=== PATIENT | male | born 1955 | race Caucasian/White ===

== ENCOUNTER 2018-03-03 06:08 | Inpatient (IN) | payer OTHER, SELFPAY ==
[2018-02-17 10:58] VITALS: BMI 29.3
[2018-03-03] VITALS (18 sets, daily range): BP systolic 117–139; BP diastolic 50–95; PULSE 71–88; RESP 10–21; TEMP 36.2–37.6; O2SAT 95–99; BMI 29.3
--- NOTE | 2018-03-03 | DI.RAD.S_ITS ---
PROCEDURE: XR LUMBAR SPINE 2-3V INDICATIONS: L2-3-4-5 XLIF, L5-S1 TLIF TECHNIQUE: 2 views of the lumbar spine were acquired. COMPARISON: None. FINDINGS: Bones: A normal alignment is visualized after bilateral posterior transverse pedicle screw placement and vertical fixation moe placement from L2-S1. Soft tissues: Overlying bowel gas pattern is normal. No suspicious soft tissue calcifications. IMPRESSION: Normal alignment established after posterior fusion procedure with interbody disc prosthesis material from L2-3 through L5-S1. Dictated by: Ashok Wise M.D. on 03/03/2018 at 12:52 Approved by: Ashok Wise M.D. on 03/03/2018 at 12:53
[2018-03-03] MEDS: LACTATED RINGERS 1,000 ML 42 ML IV ×3 (07:09→12:42)
--- NOTE | 2018-03-03 07:34 | PM.PREOP ---
Pre-operative Note Interval Note Pre-op Check: Yes History & Physical Reviewed by Physician and Yes Exam Performed Changes: No
--- NOTE | 2018-03-03 07:40 | P.OP_ITS ---
Operative Date/Time/Diagnoses Date of procedure: 03/03/18 Time of procedure: 12:41 Pre-op diagnosis: Lumbar stenosis with radiculopathy Lumbar scoliosis Post-op diagnosis: same Procedure & Clinicians Procedure: L2-3, L2-3, L3-4 anterior fusion with cages L2-3, L3-4, L4-5 posterior fusion L5-S1 TLIF (post/post innerbody fusion) with cage L2-S1 screws ICBG L5S1 laminectomy microscope placement of epidural catheter Same procedure as scheduled: Yes Indications: [age] year old male with intractable pain from stenosis. They had failed conservative management and requested operative intervention. Risks and benefits of surgery were discussed and appropriate consents were obtained. Surgeon: Sheng Krause Autocad Operator: Iraida Medina Anesthesia Type: General Operative Notes Findings: none Closure Type: primary Specimen(s): none sent Implants & Drains: NuVasive MAS Reline screws and XLIF cages Globus Rise cage Applied: catheter Estimated Blood Loss (mL): 50 Procedure in detail: Patient was brought to the operating room and intubated on the table. Time-out was performed. They were then rolled over to the lateral decubitus position with the [id number]. The table was bent and they were taped down in the correct position. X-rays were taken to confirm a true AP and lateral. Preoperative antibiotics were given. The left flank was prepped and draped in standard sterile fashion. Using fluoroscopy, a 3 cm incision was made above the iliac crest. We bluntly dissected down with Metzenbaum scissors and split the 3 abdominal muscle layers. We dissected out the retroperitoneal space and using finger guidance, brought our 1st dilator down to the psoas muscle. Using neuromonitoring and fluoroscopy, we placed it through the psoas onto the L4-5 disc space in an anterior position and gradually pulled the dilator posteriorly along the disc space. We placed our guidewire and measured our depth for the retractor. We then dilated with the next 2 dilators and then placed our retractor over the dilators. Position was confirmed with fluoroscopy and the retractor was locked down to the bar. We opened up the retractor and checked with neuro monitoring. We then placed the piotr and again checked with neuro monitoring. The retractor was opened further and the ALL retractor was placed. An annulotomy was performed. We then performed a complete diskectomy with ring curette, pituitary, box osteotome. A Kevin was advanced across the disc space under fluoroscopy to release the lateral annulus on the opposite side. We then used sequentially larger trials and confirmed under fluoroscopy. An XLIF cage was packed with Osteocell bone graft and impacted into the L4-5 disc space with fluoroscopy for the anterior fusion at this level. The wound was irrigated. The retractor was closed down. The piotr was removed. We carefully removed the retractor with direct visualization to make sure there was no neurovascular or abdominal injury. We then repeated the procedure with dilation, placement of the retractor, diskectomy with the lateral release, and placement of our cage packed with bone graft for the anterior fusion at L3-4. We then carefully removed the retractor with direct visualization. We then repeated the procedure again with dilation, placement of the retractor, diskectomy with lateral release, placement of our cage with bone graft for the anterior fusion at L2-3. We carefully removed the retractor with direct visualization. Final x-rays were taken. The muscle fascia was closed, superficial tissue was closed. The skin was closed. Sterile dressing was placed. The patient was then rolled over on the well-padded prone position on the Satinder table. Using fluoroscopy for localization, a 12 cm incision was made to the right of the midline. We used Bovie to split the fascia. We then percutaneously placed Jamshidi needles down the right pedicles of L5 and S1 with neural monitoring and fluoroscopy. These were switched out for guidewires. We then tapped and placed our realign screw shanks. We then opened up the retractor blades and cleared out the posterolateral gutter and expose the transverse process of L5 and sacral ala. We also cleared medially. The gutter was decorticated We then brought in the microscope. A laminectomy was performed at L5-S1 with a bur and Kerrison rongeurs. We carefully depressed the dura to reach to the opposite side and decompress the entire central canal. We cleared out the neural foramen. This required a near complete facetectomy to open up the foramen. Once we decompressed the canal, we then began working on our prep for our TLIF. We completed the facetectomy on the right at L5-S1. We carefully retracted the dura and prepped the disc with bipolar. We made an annulotomy in the disc with a scalpel. We then prepped the disc space with a combination of paddles, Cachorro, curettes, and pituitaries. We opened up the paddle and locked the screws and retractor and an open position. We packed the anterior disc space with Osteocell bone graft. We then carefully placed a globus Rise cage and expanded under fluoroscopy. More bone graft was placed in the disc for the posterior innerbody fusion of the TLIF. . We released the traction on the screws. The wound was copiously irrigated. An epidural catheter was primed with 4mL of 0.5% bupivacaine, 100 mcg fentanyl, 4 mg Duramorph, 1 mg Stadol. The dura was depressed under the cephalad lamina with a ball probe and the epidural catheter was gently advanced 6 cm cephalad. The retractor was then removed. We then again used neural monitoring and fluoroscopy to place Jamshidi needles down the right pedicles of L2, L3, and L4. These were changed to guidewires. Open the muscle with a Estela splitting approach to expose the facet and the transverse processes at these levels and they were decorticated with the bur. We then tapped and placed our screws at L2, L3, L4 as well as the screw heads at L5 and S1. We measured and placed a moe. This was locked down. The wound was irrigated. A small stab incision was made over the PSIS and a Jamshidi needle was placed into the iliac crest and several mL of bone marrow was aspirated. This was mixed with our locally harvested bone graft as well as the remaining Osteocell and 60cc bone chips and placed in the posterolateral gutter for fusion at L2 through 5 as well as the posterolateral L5-S1 fusion for the TLIF. The fascia was then closed. The epidural was then injected without resistance. The catheter was pulled and we closed more over the fascia. We then used fluoroscopy and made another 12 cm incision on the left side. Bovie used to split the fascia. We then percutaneously placed Jamshidi needles down the left pedicles of L2 through S1. These were switched the guidewires, tapped, and the screws were placed. A moe was placed and locked down on the side. The wound was irrigated. The fascia was closed. Vancomycin powder was placed in the wounds. The superficial and skin were closed. Sterile dressing was placed. The patient was then rolled over, extubated, brought to the recovery room with no complications. Complications: none Condition: stable Disposition: PACU Plan for aftercare: Inpatient. Up with physical therapy
[2018-03-03] MEDS: MIDAZOLAM 2 MG/2 ML VIAL IV (07:50)
[2018-03-03] MEDS: CEFAZOLIN 2 GM/100 ML FROZ.PIGGY IV ×3 (08:05→23:48)
[2018-03-03] MEDS: SODIUM CHLORIDE 0.9% 1,000 ML, GENTAMICIN 80 MG IRR (08:36)
--- NOTE | 2018-03-03 08:53 | SUR.OPER ---
Position 1: Right lateral on padded OR table. Head on pillow, gel axillary roll, pillow to support left arm. Legs flexed, pillows between legs, gel pad under down leg and ankle. Multiple passes of 3 inch cloth tape across shoulder, hip, upper and lower legs to secure patient on OR table.
--- NOTE | 2018-03-03 08:53 | SUR.OPER ---
Position 2: Prone on spine table, head in foam head support, padded chest and pelvic supports, gel pad at knees, lower legs supported by pillows; nipples, genitalia and toes free of pressure, arms secured on foam padded arm boards at <90 degrees abduction. Tape over blanket at thigh secured to table.
[2018-03-03] MEDS: THROMBIN (BOVINE) 5,000 UNIT VIAL 5000 UNIT TOP (09:04)
[2018-03-03] MEDS: BUPIVACAINE 0.5% (PF) 4 ML, MORPHINE-PF 4 MG, BUTORPHANOL 1 MG, fentaNYL 100 MCG INJ (09:07)
[2018-03-03] MEDS: VANCOMYCIN 1,000 MG VIAL 1000 MG TOP (09:09)
[2018-03-03] MEDS: HYDROMORPHONE 2 MG INJ 0.5 MG IV ×4 (13:10→13:25)
[2018-03-03] MEDS: LORazepam 2 MG/ML SYRINGE 0.25 MG IV ×2 (13:22→13:31)
[2018-03-03] MEDS: fentaNYL 100 MCG/2 ML INJ 25 MCG IV ×4 (13:30→14:00)
[2018-03-03] MEDS: hydrOXYzine 50 MG/ML INJ 25 MG IM (13:34)
--- NOTE | 2018-03-03 14:12 | SUR.PHASEI ---
pt writhing in pain medicated with dilaudid, lorazepam, fentanyl, vistaril. pt finally now looks comfortable. report attempted, rn not available will call back, pt spent time on r side and back changed several times through out pacu stay, dressing to l side with drainage that is encircled.
--- NOTE | 2018-03-03 14:46 | SUR.PHASEI ---
report called to priscilla pt transported up to room 201 and left in stable condition. pt tolerated 1 cup of ice chips and applesuace.
--- NOTE | 2018-03-03 14:56 | SUR.PHASEI ---
glucose done at 1315 was 119.
[2018-03-03] MEDS: METOCLOPRAMIDE 10 MG/2 ML INJ IV (15:12)
--- NOTE | 2018-03-03 16:41 | PT.IPTN ---
Current Diagnoses Other forms of scoliosis, lumbar region (03/03/18) Spinal stenosis, cervical region (03/03/18) Spinal stenosis, lumbar region with neurogenic claudication (03/03/18) Other intervertebral disc degeneration, lumbar region (03/03/18) Surgery Performed Operation Date: 03/03/18 07:45 Actual Procedures p L2-S1 Ant/Post Instru. Fusion w/Bone Graft(XLIF & TLIF)w/Laminectomy L5-S1 - Sheng Krause MD Physical Therapy Treatment Note M3 PT-IP Subjective Start: 03/03/18 16:37 Freq: NEEDED Status: Active Protocol: Document 03/03/18 16:37 EA (Rec: 03/03/18 16:41 EA [id number]) Subjective Physical Therapy Visit Type Type Administrative Note Notes Nurse in charged reports at 1630 reports patient is not ready to received pain medication at this time due to other medical issue. Patient reports willing to mobilized however pain rated 9/10; pt reports very painful to change position. Patient agreeable to participate with PT eval tomorrow am.
[2018-03-03] MEDS: LACTATED RINGERS 1,000 ML 125 ML IV ×2 (16:53→23:45)
[2018-03-03] MEDS: ACETAMINOPHEN 325 MG TABLET 650 MG PO (16:56)
[2018-03-03] MEDS: OXYCODONE IR 5 MG TABLET PO ×2 (19:19→22:48)
[2018-03-03] MEDS: PRAVASTATIN 20 MG TABLET 10 MG PO (21:00)
[2018-03-03] MEDS: GABAPENTIN 300 MG CAPSULE 600 MG PO (21:00)
[2018-03-03] MEDS: clonazePAM 0.5 MG TABLET PO (21:01)
[2018-03-03] MEDS: DOCUSATE 100 MG CAPSULE PO (21:01)
[2018-03-03] MEDS: TAMSULOSIN 0.4 MG CAPSULE PO (21:01)
--- NOTE | 2018-03-03 23:01 | PC.NURSE ---
1530: Pt drowsy/oriented. Dozing off during conversation. Respiratory rate 8-10. Pt reports pain, though with respirations/pauses, not given pain meds yet. Dressing to lower back c/d/i, dressing to left flank with drainage present/marked. LS w/expiratory wheeze/rhonchi. Encouraged cough/deep breathing. Spouse at bedside. Pt/spouse using call light appropriately for needs. 1730: Pt continues to have respirations with sleep 8-10, very drowsy. 1900: Pt respirations 12-14 w/rest and now more awake/alert. Reports pain 8/10. Medicated w/one tab oxycodone and pain decreased to 4/10. 2245: Pt medicated w/one tab oxycodone. Spouse staying the night.
[2018-03-04] VITALS (8 sets, daily range): BP systolic 122–148; BP diastolic 64–80; PULSE 74–84; RESP 16–22; TEMP 36.7–37.9; O2SAT 93–96
[2018-03-04] MEDS: OXYCODONE IR 5 MG TABLET PO (02:12)
[2018-03-04] MEDS: HYDROMORPHONE 1 MG INJ 0.5 MG IV ×3 (03:49→21:30)
[2018-03-04] MEDS: hydrOXYzine pamoate 25 MG CAPSULE PO (04:20)
[2018-03-04] MEDS: OXYCODONE IR 5 MG TABLET 10 MG PO (05:05)
[2018-03-04 07:36] LABS: Hematocrit 37.5 % (41-53); Hemoglobin 14.1 g/dL (13.5-17.5)
--- NOTE | 2018-03-04 08:08 | PM.PNPO.1 ---
Subjective Date Patient Seen: 03/04/18 Time Patient Seen: 08:08 Interval history: Pain not as bad overnight but severe this morning. Exam Vital Signs (past 8 hours): - 03/04/18 03:30 Temperature 98.8 F Pulse Rate 74 Respiratory Rate 22 Blood Pressure 132/72 Pulse Oximetry 95 Oxygen Delivery Method Nasal Cannula Oxygen Flow Rate 3 Const Orientation: alert and oriented x3 Back/Spine/Pelvis Other: moderate drainage on both dressings. 5/5 motor BLE Objective Labs Result Diagrams: 03/04/18 07:07 Labs: Laboratory Results - last 24 hr 03/04/18 07:07 Hgb 14.1 Hct 37.5 L Assessment & Plan Post-op Postoperative Procedures Operation Date: 03/03/18 07:45 Actual Procedures Side Surgeon p L2-S1 Ant/Post Instru. Fusion w/Bone Graft(XLIF & TLIF)w/Laminectomy L5-S1 Sheng Krause MD Stable after large front/back lumbar fusion. Pain control discussed with nursing and we will adjust his meds. Mobilize with PT. Quality VTE Deep Vein Thrombosis/Pulmonary Embolism Present on Admission: No
[2018-03-04] MEDS: AMLODIPINE 5 MG TABLET 10 MG PO (08:28)
[2018-03-04] MEDS: DOCUSATE 100 MG CAPSULE PO ×2 (08:29→20:29)
[2018-03-04] MEDS: hydroCHLOROthiazide 25 MG TABLET PO (08:29)
[2018-03-04] MEDS: LISINOPRIL 20 MG TABLET PO (08:30)
[2018-03-04] MEDS: MELOXICAM 7.5 MG TABLET 15 MG PO (08:31)
[2018-03-04] MEDS: diazePAM 5 MG TABLET PO (08:32)
[2018-03-04] MEDS: OXYCODONE IR 5 MG TABLET 15 MG PO ×4 (08:34→18:56)
[2018-03-04] MEDS: GABAPENTIN 600 MG TABLET PO ×2 (08:39→20:30)
--- NOTE | 2018-03-04 11:25 | OT.IP.EVAL ---
Current Diagnoses Other forms of scoliosis, lumbar region (03/03/18) Spinal stenosis, cervical region (03/03/18) Spinal stenosis, lumbar region with neurogenic claudication (03/03/18) Other intervertebral disc degeneration, lumbar region (03/03/18) Surgery Performed Operation Date: 03/03/18 07:45 Actual Procedures p L2-S1 Ant/Post Instru. Fusion w/Bone Graft(XLIF & TLIF)w/Laminectomy L5-S1 - Sheng Krause MD Past Medical History (Last Updated 02/17/18 @ 11:41 by Heidi Quevedo RN) Anxiety (Acute) Arthritis (Acute) Bronchitis (Acute) Cataracts, both eyes (Acute) Dislocation of right shoulder joint (Acute) Diverticulosis (Acute) Easy bruisability (Acute) Edema (Acute) Enlarged prostate (Acute) Fingers fractured (Acute) GERD (gastroesophageal reflux disease) (Acute) Ganglion cyst (Acute) HTN (hypertension) (Acute) Hemorrhoids (Acute) Hyperactive (Acute) Hyperlipidemia (Acute) Migraines (Acute) Numbness (Acute) Numbness and tingling of both legs (Acute) Pre-diabetes (Acute) RLS (restless legs syndrome) (Acute) Ulcer (Acute) Surgical History (Last Updated 02/17/18 @ 11:27 by Heidi Quevedo RN) H/O vasectomy (Acute) History of arthroscopy of both knees (Acute) History of bilateral carpal tunnel release (Acute) History of colonoscopy (Acute) History of surgery on arm (Acute) Hx of tonsillectomy (Acute) Occupational Therapy Inpatient Evaluation/Re-Eval M1 PT/OT-IP Prior Functional Status Start: 03/03/18 16:37 Freq: NEEDED Status: Active Protocol: Document 03/04/18 15:29 [facility] (Rec: 03/04/18 15:39 [facility] [id number]) Medical Review Prior Functional Status Medical History Reviewed Yes Mobility and Gait indep no device Activities of Daily Living and IADL's indep Social History Household Members spouse Living Arrangements House Number of Floors (Floors) Two Floors Number of Stairs To Enter/Railing? 4; first stair with no railing , next 3 with railing Home Environment Standard Height Toilet Employment Status Retired M2 OT-IP Current Condition Start: 03/04/18 17:18 Freq: Status: Active Protocol: Document 03/04/18 11:25 [facility] (Rec: 03/04/18 17:34 [facility]J [id number]) Occupational Therapy Current Condition Current Condition Evaluation Date 03/04/18 Treatment Diagnosis decreased self care, functional mobility s/p L2-S1 fusion Diagnosis Onset Date 03/03/18 Post Operative Precautions Lumbar Precautions Log Roll No Twisting Limit Bending Lifting Restriction of 10 lbs Gait Belt above Incisional Area M3 OT- IP Subjective and Pain Start: 03/04/18 17:18 Freq: Status: Active Protocol: Document 03/04/18 11:25 [facility] (Rec: 03/04/18 17:34 PJ [id number]) OT- Subjective Occupational Therapy Visit Type Type Initial Evaluation Visit Start Time 10:41 Visit Stop Time 11:25 Total Visit Minutes 44 Notes Pt's here for education this session. Occupational Therapy Visit Comments Patient Comments Last night was the worst night of my life. Patient/Caregiver Goals to have less pain and go home OT Pain Assessment Pain When Pain Assessed After Treatment Pain Present Pain Present Pain Reported Location Lower Back Intensity 9 Scale Used Numeric (1 - 10) Description Aching Acute M4 OT- IP ADL's Start: 03/04/18 17:18 Freq: Status: Active Protocol: Document 03/04/18 11:25 [facility] (Rec: 03/04/18 17:34 PJ NRTM) OT [id number]-[id number]-[id number] General Evaluation Self-Feeding Ability Independent OT ADL-Grooming General Evaluation Grooming Ability Standby Assistance Areas Needing Assistance Face Washing Comments OT Grooming Comments seated in chair; pt declines other grooming tasks this session; focused on getting back to bed OT ADL-Oral Care Comments Oral Care Comments pt declined this session OT ADL-Dressing General Eval Upper Body Dressing Ability Minimal Assistance Lower Body Dressing Ability Total Assistance Assistive Devices Dressing Assistive Devices Long Handled Shoe Horn Bleacher Pulp Comments OT Dressing Comments can assist PRN at home; will begin education re: adapted ADL techniques tomorrow OT ADL-Toileting Comments OT Toileting Comments did not occur this session OT ADL-Bathing Comments OT Bathing Comments to be assessed as activity level improves M5 OT- IP IADL's Start: 03/04/18 17:18 Freq: Status: Active Protocol: Document 03/04/18 11:25 [facility] (Rec: 03/04/18 17:34 PJ [id number]) OT-Instrumental Activities of Daily Living Deficits IADL Deficits Identified Deficits Home Safety Awareness Awareness of Need for Assistance at Home Good Awareness Ability to Problem Solve Emergency Able to Problem Solve Situations Medication Management Medication Management Caregiver Provides Supervision Meal Preparation Meal Preparation Caregiver Provides Assist Meal Preparation Comments to assist until pt able Electron Beam Photo Mask Technician Electron Beam Photo Mask Technician Caregiver Provides Assist Driving Driving Comments to assist until pt able M6 OT- IP Functional Cognition Start: 03/04/18 17:18 Freq: Status: Active Protocol: Document 03/04/18 11:25 [facility] (Rec: 03/04/18 17:34 PJ [id number]) Cognitive Factors Limiting Selfcare Function Cognitive Ability Level of Alertness Alert Patient Orientation Name Place Situation Attention Span Ability Unable to Focus Ability to Follow Commands Able to Follow One Step Commands with Repetition Safety Awareness Decreased Recall of Precautions Decreased Ability to Apply Precautions Problem Solving Ability Unable to Identify Errors Needs Assist to Identify Solutions Executive Function Ability Unable to Filter Distractions Unable to Remember Details Cognitive Comments Cognitive Assessment Comments Pt very distracted by pain level with mod verbal cues to redirect attention to task. OT- Vision and Hearing OT- Hearing Assessment OT- Hearing Assessment WFL OT- Vision Assessment Visual Acuity WFL Vision Assessment Comments Pt denies any recent vision changes M7 OT- IP Mobility and Balance Start: 03/04/18 17:18 Freq: Status: Active Protocol: Document 03/04/18 11:25 [facility] (Rec: 03/04/18 17:34 [facility] [id number]) OT- Bed Mobility Assessment Rolling Type of Rolling Log Rolling Roll to Left Level of Assistance Contact Guard Assistance 1 Person Assistance Sit to Supine Sit to Supine Assist Moderate Assistance 1 Person Assistance Scooting Scooting to Edge of Bed Standby Assistance OT-Transfer Assessment Sit to and From Stand Sit to and from Stand Minimal Assistance 2 Person Assistance Transfers Transfer Ability Minimal Assistance 1 Person Assistance Technique Transfer Destination Bed Transfer Technique Stand Step Pivot Devices Transfer Assistive Devices Gait Belt Front Wheeled Walker Comments Mobility Comments Max cues for log roll technique with poor motor planning noted. Pt restless in bed and wanting to change positions every 4-5 min until distracted by conversation. OT- Gait Assessment Comments Gait Ability Comments see P.T. notes OT- Balance Assessment Sitting Balance and Reactions Static Sitting Balance Ability Good Dynamic Sitting Balance Ability Good Standing Balance and Reactions Static Standing Balance Ability Fair Dynamic Standing Balance Ability Fair M8 OT- IP Objective Assessments Start: 03/04/18 17:18 Freq: Status: Active Protocol: Document 03/04/18 11:25 [facility] (Rec: 03/04/18 17:34 PJM [id number]) OT Gross Range of Motion Upper Extremity Range of Motion Assessment Within Functional Limits OT Strength Upper Extremity Strength Assessment Within Functional Limits OT- Coordination Assessment Comments Coordination Comments BUE WFL OT-Muscle Tone Assessment Muscle Tone WNL Yes OT Sensation Assessment Comments Summary Comments Pt denies deficits in BUE's M9 OT- IP Assessment and Plan Start: 03/04/18 17:18 Freq: Status: Active Protocol: Document 03/04/18 11:25 [facility] (Rec: 03/04/18 17:34 PJM [id number]) OT Summary Assessment and Plan Potential Rehabilitation Potential Good Analytic Complexity at Evaluation Low Summary OT Impairments Pain Balance Functional Mobility Grooming Dressing Toileting Bathing Toilet Transfers Shower Transfers Assessment Summary Low complexity OT assessment completed with emphasis in self care skills within lumbar spine precautions. Began education with pt/ re: precautions, body mechanics, posture, practiced functional mobility. Pt very distractible, restless,very focused on high pain level but easily distracted with conversation and joking at times. able to cue pt appropriately as he does not recall/apply spine precautions with frequent twisting noted during bed mobility unless cued. Pt has performance deficits in activity tolerance , all functional mobility/ transfers, standing grooming, lower body dressing, bathing and toileting. Supportive can provide 24 hr assist and anticipate pt will be able to d/c home if he continues to progress here. Goals Grooming Goal Standby Assistance Dressing Goal Standby Assistance Long Handled Shoe Horn Bleacher Pulp Sock Aid Toileting Goal Standby Assistance Bathing Goal Standby Assistance Toilet Transfer Goal Standby Assistance Shower Transfer Goal Contact Guard Assistance Patient/Caregiver Education Goal Demonstrate Post-Op Precautions Demonstrate Energy Conservation and Pacing Caregiver Independent Assisting Patient OT-Other Goals Grooming to be done standing at sink wtih good body mechanics and no loss of balance Days to Meet Goals 3 Frequency of Treatment Frequency Of Treatment Once a Day Treatment Plan OT Treatment Plan ADL Training Functional Mobility Patient/Family Education Discharge Planning Discharge Recommendations OT Discharge Recommendations Home with / Assist Home Equipment Needs to obtain long bath sponge; pt would like W
[2018-03-04] MEDS: GABAPENTIN 300 MG CAPSULE PO (12:44)
--- NOTE | 2018-03-04 15:39 | PT.IIE ---
Current Diagnoses Other forms of scoliosis, lumbar region (03/03/18) Spinal stenosis, cervical region (03/03/18) Spinal stenosis, lumbar region with neurogenic claudication (03/03/18) Other intervertebral disc degeneration, lumbar region (03/03/18) Surgery Performed Operation Date: 03/03/18 07:45 Actual Procedures p L2-S1 Ant/Post Instru. Fusion w/Bone Graft(XLIF & TLIF)w/Laminectomy L5-S1 - Sheng Krause MD Surgical History (Last Updated 02/17/18 @ 11:27 by Heidi Quevedo, RN) H/O vasectomy (Acute) History of arthroscopy of both knees (Acute) History of bilateral carpal tunnel release (Acute) History of colonoscopy (Acute) History of surgery on arm (Acute) Hx of tonsillectomy (Acute) Medical History (Last Updated 02/17/18 @ 11:41 by Heidi Quevedo RN) Anxiety (Acute) Arthritis (Acute) Bronchitis (Acute) Cataracts, both eyes (Acute) Dislocation of right shoulder joint (Acute) Diverticulosis (Acute) Easy bruisability (Acute) Edema (Acute) Enlarged prostate (Acute) Fingers fractured (Acute) GERD (gastroesophageal reflux disease) (Acute) Ganglion cyst (Acute) HTN (hypertension) (Acute) Hemorrhoids (Acute) Hyperactive (Acute) Hyperlipidemia (Acute) Migraines (Acute) Numbness (Acute) Numbness and tingling of both legs (Acute) Pre-diabetes (Acute) RLS (restless legs syndrome) (Acute) Ulcer (Acute) Physical Therapy Inpatient Evaluation/Re-Eval M1 PT/OT-IP Prior Functional Status Start: 03/03/18 16:37 Freq: NEEDED Status: Active Protocol: Document 03/04/18 15:29 [facility] (Rec: 03/04/18 15:39 [facility] [id number]) Medical Review Prior Functional Status Medical History Reviewed Yes Mobility and Gait indep no device Activities of Daily Living and IADL's indep Social History Household Members spouse Living Arrangements House Number of Floors (Floors) Two Floors Number of Stairs To Enter/Railing? 4; first stair with no railing , next 3 with railing Home Environment Standard Height Toilet Employment Status Retired M2 PT-IP Current Condition Start: 03/03/18 16:37 Freq: NEEDED Status: Active Protocol: Document 03/04/18 15:29 [facility] (Rec: 03/04/18 15:39 [facility] [id number]) Physical Therapy Current Condition Current Condition Evaluation Date 03/04/18 Precautions Lumbar Precautions Log Roll No Twisting Limit Bending Lifting Restriction of 10 lbs Gait Belt above Incisional Area M3 PT-IP Subjective Start: 03/03/18 16:37 Freq: NEEDED Status: Active Protocol: Document 03/04/18 15:29 [facility] (Rec: 03/04/18 15:39 [facility] [id number]) Subjective Physical Therapy Visit Type Type Initial Evaluation Visit Start Time 09:14 Visit Stop Time 01:45 Total Visit Minutes 31 Number of SHAKER OPERATOR Visits 0 Physical Therapy Visit Comments Patient Comments Patient reports pain 8/10 now after medication, better than prior 1210 Patient Goals decrease pain and return home Therapy Pain Assessment Pain When Pain Assessed At Rest Pain Present Pain Present Pain Reported Location Lower Back Intensity 8 M4 PT-IP Mobility and Gait Start: 03/03/18 16:37 Freq: NEEDED Status: Active Protocol: Document 03/04/18 15:29 [facility] (Rec: 03/04/18 15:39 [facility] [id number]) PT-Bed Mobility Assessment Rolling Type of Rolling Log Rolling Roll to Right Supine to Sit Supine to Sit Moderate Assistance Scooting Scooting to Edge of Bed Minimal Assistance PT-Transfer Assessment Sit to and From Stand Sit to and from Stand Moderate Assistance Use of Upper Extremities Equipment Transfer Assistive Device Front Wheeled Walker Transfers Transfer Destination Chair Transfer Technique Stand Step Pivot Transfer Ability Level of Assist Moderate Assistance Comments Mobility Comments Verbal and manual cues for hand placement, not holding breath, safety Gait Assessment Gait Gait Assistance Required: Minimum Assistance Distance (Feet) 2 Assistive Devices Assistive Device Front Wheeled Walker Gait Deviations General Gait Pattern Antalgic Factors Limiting Gait Function Factors Limiting Gait Function Pain M5 PT-IP Objective Assessments Start: 03/03/18 16:37 Freq: NEEDED Status: Active Protocol: Document 03/04/18 15:29 [facility] (Rec: 03/04/18 15:39 [facility] [id number]) Gross Range of Motion Upper Extremity ROM Assessment Within Functional Limits Lower Extremity ROM Assessment Within Functional Limits Strength Comments Strength Comments No MMT due to recent surgery. Patient able to perform loida ankle pumps, heelslides, and LAQ indep Muscle Tone Muscle Tone WNL Yes M6 PT-IP Treatment Start: 03/03/18 16:37 Freq: NEEDED Status: Active Protocol: Document 03/04/18 15:29 [facility] (Rec: 03/04/18 15:39 [facility] [id number]) Physical Therapy Treatment Exercises Exercises Ankle Pumps Gluteal Sets Quad Sets Heel Slides Education Education Provided Precautions Safety Other Treatments Other Treatment Performed log roll education, rationale M7 PT-IP Assessment and Plan Start: 03/03/18 16:37 Freq: NEEDED Status: Active Protocol: Document 03/04/18 15:29 [facility] (Rec: 03/04/18 15:39 [facility] [id number]) PT Summary Assessment and Plan Potential Rehabilitation Potential Good Status of Condition at Evaluation Evolving Summary Impairments Pain Bed Mobility Transfers Gait Activity Tolerance Assessment Summary Patient presents 1 day post-op lumbar laminectomy and fusion with difficulty with pain control. Patient needed much encouragement to participate in PT but did well with instruction. Limiting factor is pain level. Goals Bed Mobility Goal Independent Transfer Goal Standby Assistance Gait Goal Standby Assistance Gait Distance 75 Other Goals Gait on stairs with SBA Days to Meet Goals 3 Frequency of Treatment Frequency Of Treatment Twice a Day Treatment Plan Physical Therapy Treatment Plan Bed Mobility Training Transfer Training Gait Training Therapeutic Exercise Post Op Education Recommendations To Nursing Amount of Assist Needed 1 Person Assist Discharge Recommendations PT Discharge Recommendations Home with Assistance Outpatient PT
--- NOTE | 2018-03-04 15:41 | CM.DANOTE ---
Patient is a 62 year old male who was admitted on 03/03/18 for Surgery. Pt has [facility] for insurance and his PCP is Dr. Juarez. EMR was reviewed. Per MD, pt tolerated procedure well. Per PT, pt did well and likely safe for d/c home when medically stable. SW met bedside with pt and spouse and explained role and they confirmed that the pt is Independent with ADL's at baseline and does not use DME to ambulate and drives. Pt does have a walker to use at home and preference is to d/c home with spouse support and they do not anticipate any SW needs at d/c. Pt is mainly having pain control issues and not stable for d/c yet today. Plan: SW to follow for pain management issues and likely d/c home with spouse to [place] when medically stable. SW to follow for any further identified discharge planning needs. DAKOTA Foster Discharge Planning/Care Management CM Discharge Assessment Start: 03/04/18 15:40 Freq: Status: Active Protocol: Document 03/04/18 15:40 [facility] (Rec: 03/04/18 15:41 [facility] [id number]) Discharge Planning Assessment Assigned Creative Intern DAKOTA Sarmiento Advance Directives? Yes Advance Directives on File Yes: Pt states on file previously History Provided By Patient Significant Other Medical Record Has Patient been admitted in last 30 No days? Prior Living Arrangements House Household Members spouse Type of transporation used prior to Drives own vehicle admit Independent with ADL's Yes Is patient alert and oriented? Yes Caregiver for Another No Barriers to Discharge No Discharge Plan Home Transportation Arrangement Spouse can provide transport Referrals Initiated None needed Whiteboard Updated in Patient Room with Yes name and ext. # of Creative Intern Review Status In Process Please Provide Date Initial DC 03/04/18 Assessment Was Performed Next Review Type Continued Stay Review Pre-Anesthesia Assessment Start: 02/17/18 10:58 Freq: Status: Active Protocol: Document 02/17/18 10:58 [facility] (Rec: 02/17/18 11:53 [facility] [id number]) Pre-Anesthesia Assessment Patient Also Known As (QIAN Mcintosh Patient Information Reviewed Via Phone Assessment Assessment Completed With Patient Lab Results BMP/CMP CBC EKG Other Comment A1c Primary Care Provider Jose Juarez Medical Clearance Received Yes Seen Specialist in Last 12 Months Yes Specialist Seen Opthamologist/Surgery Aid Orthopedist Comment PCP note 12/10/17 to med records to be scanned to chart Primary Language Citizen Of [place] Chairman & Co Founder Required No Height 167.64 cm Weight 82.554 kg Body Mass Index (BMI) 29.3 Hearing Ability Normal Visual Assist Glasses Dentition Type Teeth, Natural Present Barriers to Learning None Other Aids No Hx Anesthesia Reactions Yes: Hard to put to sleep Hx Family Anesthesia Reaction Yes: Hard to put to sleep Hx Malignant Hyperthermia No Hx Blood Transfusions No Anesthesia Review Requested No Petroleum Sampler No alcohol intake current alcohol intake frequency a few times a month Smoking Status Former smoker Smoking cigarettes per day 3 how long ago did patient quit smoking Quit 2014, smoked x 35 years Substance Use Type marijuana Comment Pt advised not to smoke 24 hours prior Pain Present Pain Reported Musculoskeletal Symptoms Back Pain Difficulty Walking Joint Pain Limited Range of Motion Muscle Weakness History of Falling (Recent or History of Yes ) Patient is completely paralyzed or No completely immobile Prosthesis or Orthotic Device Cane Mental Status Oriented to own ability Is patient on oxygen? No Does patient have LOPEZ/SOB No Hx Sleep Apnea No Suspected Sleep Apnea No Currently Taking a Beta Rebekah No Can You Climb a Flight of Stairs Without Yes SOB Hx Chest Pain No Hx SOB No Hx Syncope or Dizziness No Anti-Coagulant Therapy No Has a Prep Manager No Cardiac Testing No Hx Pacemaker/ICD No Pacemaker Rep Required? No Cardiac Clearance Received Not Applicable Diet Type At Home Regular dysphagia No Genitourinary Symptoms Change in Urinary Stream Bladder Pattern Nocturia Urinary Catheter Present No Hx Urinary Self Catheterization No Diabetes No: Pre-diabetes HgbA1C 5.9 Date 02/16/18 Hx Drug Resistant Organism No Presence of External or Internal Medical Yes Devices Comment Screws in right arm Have you traveled outside the [facility] in the last 30 days? Marital Status Lives With spouse Prior Living Arrangements House Number of Floors (Floors) One Floor Number of Stairs To Enter/Railing? 3 stairs, railing Support System Child/Children Spouse Does the Patient Have Assistance After Yes Surgery Patient Discharge Plan Description Return Home Comment Pt advised 2-3 day length of stay per surgeon's office Feels Safe in Current Environment Yes Been Physically Hurt or Threatened By a No Person in Current Environment Do you have thoughts of harming yourself None or others? Are you currently considering suicide? No Do you have a plan to hurt yourself or No Plan others? Do You Have Any Spiritual Beliefs That No May Affect Your HC Choices? Do You Have Any Cultural Practices That Yes: Sabianism, no pork products May Affect Your HC Choices? Spiritual Referral None Comment Sabianism Who Can We Speak to About Patient's Care Family, friends Identifying Code for Release of Patient Declines to issue Information Health Care Proxy/Next of Kin Anya () Health Care Proxy Emergency Contact Name Anya (), Shamir (son) Emergency Contact Phone Number Anya: [phone] Shamir: Advance Directives? Yes Advance Directives on File Yes: Pt states on file previously Requested Patient Bring Advanced Yes Directives DOS Power of Java Lead Developer Yes: On file PAC Instructions Do not shave/clip surgical site Durable medical equipment Medications to take/avoid Nasal antibiotic No ETOH/petroleum product on skin DOS NPO Post-op transportation Pre-surgical wash Sturdy shoes/comfortable clothes Do not bring valuables and remove jewelry
--- NOTE | 2018-03-04 15:52 | PT.IPTN ---
Current Diagnoses Other forms of scoliosis, lumbar region (03/03/18) Spinal stenosis, cervical region (03/03/18) Spinal stenosis, lumbar region with neurogenic claudication (03/03/18) Other intervertebral disc degeneration, lumbar region (03/03/18) Surgery Performed Operation Date: 03/03/18 07:45 Actual Procedures p L2-S1 Ant/Post Instru. Fusion w/Bone Graft(XLIF & TLIF)w/Laminectomy L5-S1 - Sheng Krause MD Physical Therapy Treatment Note M2 PT-IP Current Condition Start: 03/03/18 16:37 Freq: NEEDED Status: Active Protocol: Document 03/04/18 15:29 [facility] (Rec: 03/04/18 15:39 [facility] [id number]) Physical Therapy Current Condition Current Condition Evaluation Date 03/04/18 Precautions Lumbar Precautions Log Roll No Twisting Limit Bending Lifting Restriction of 10 lbs Gait Belt above Incisional Area M3 PT-IP Subjective Start: 03/03/18 16:37 Freq: NEEDED Status: Active Protocol: Document 03/04/18 15:35 [facility] (Rec: 03/04/18 15:51 [facility] [id number]) Subjective Physical Therapy Visit Type Type Treatment Note Visit Start Time 15:10 Visit Stop Time 15:35 Total Visit Minutes 25 Number of FAX MACHINE OPERATOR Visits 1 Physical Therapy Visit Comments Patient Comments Pt states he is very tired. Therapy Pain Assessment Pain When Pain Assessed At Rest Pain Present Pain Present Pain Reported Location Lower Back Intensity 4 Scale Used Numeric (1 - 10) Description Sharp Pain Behaviors Guarding Moaning Pain Management Techniques Re-positioning M4 PT-IP Mobility and Gait Start: 03/03/18 16:37 Freq: NEEDED Status: Active Protocol: Document 03/04/18 15:35 [facility] (Rec: 03/04/18 15:51 [facility] [id number]) PT-Bed Mobility Assessment Rolling Type of Rolling Log Rolling Roll to Right Supine to Sit Supine to Sit Minimal Assistance Sit to Supine Sit to Supine Minimal Assistance Scooting Scooting to Edge of Bed Standby Assistance PT-Transfer Assessment Sit to and From Stand Sit to and from Stand Minimal Assistance 1 Person Assistance Use of Upper Extremities Equipment Transfer Assistive Device Front Wheeled Walker Transfers Transfer Destination Bed Transfer Ability Level of Assist Contact Guard Assistance Use of Upper Extremities Gait Assessment Gait Gait Assistance Required: Contact Guard Assist Distance (Feet) 50 Able to Maintain Weight Bearing Status Yes During Gait Assistive Devices Assistive Device Front Wheeled Walker Orthotic/Prosthetic Devices or Brace: No Gait Deviations General Gait Pattern Antalgic Flexed Trunk Factors Limiting Gait Function Factors Limiting Gait Function Decreased Activity Tolerance Decreased Strength Pain M5 PT-IP Objective Assessments Start: 03/03/18 16:37 Freq: NEEDED Status: Active Protocol: Document 03/04/18 15:29 [facility] (Rec: 03/04/18 15:39 [facility] [id number]) Gross Range of Motion Upper Extremity ROM Assessment Within Functional Limits Lower Extremity ROM Assessment Within Functional Limits Strength Comments Strength Comments No MMT due to recent surgery. Patient able to perform loida ankle pumps, heelslides, and LAQ indep Muscle Tone Muscle Tone WNL Yes M6 PT-IP Treatment Start: 03/03/18 16:37 Freq: NEEDED Status: Active Protocol: Document 03/04/18 15:35 [facility] (Rec: 03/04/18 15:51 [facility] [id number]) Physical Therapy Treatment Education Education Provided Precautions M7 PT-IP Assessment and Plan Start: 03/03/18 16:37 Freq: NEEDED Status: Active Protocol: Document 03/04/18 15:35 [facility] (Rec: 03/04/18 15:51 [facility] [id number]) PT Summary Assessment and Plan Summary Assessment Summary pt improving slowly. He needed less assistance with bed mobility. He was able to progress his gait distance. He had heavy use of UE on FWW with gait. Goals Bed Mobility Goal Independent Transfer Goal Standby Assistance Gait Goal Standby Assistance Gait Distance 75 Other Goals Gait on stairs with SBA Days to Meet Goals 3 Frequency of Treatment Frequency Of Treatment Twice a Day Treatment Plan Other Recommendations and Next Treatment stairs with one rail and cane Focus before D/C Recommendations To Nursing Amount of Assist Needed 1 Person Assist Discharge Recommendations PT Discharge Recommendations Home with Assistance Outpatient PT
[2018-03-04] MEDS: SENNOSIDES 8.6 MG TABLET 17.2 MG PO (20:28)
[2018-03-04] MEDS: TAMSULOSIN 0.4 MG CAPSULE PO (20:28)
[2018-03-04] MEDS: PRAVASTATIN 20 MG TABLET 10 MG PO (20:30)
[2018-03-04] MEDS: ACETAMINOPHEN 325 MG TABLET 650 MG PO (20:34)
[2018-03-05] MEDS: OXYCODONE IR 5 MG TABLET 10 MG PO ×3 (00:51→22:19)
[2018-03-05] MEDS: OXYCODONE IR 5 MG TABLET PO (00:51)
[2018-03-05] MEDS: HYDROMORPHONE 1 MG INJ 0.5 MG IV ×3 (00:51→06:00)
[2018-03-05] MEDS: ONDANSETRON 4 MG/2 ML INJ IV (00:54)
[2018-03-05] MEDS: OXYCODONE IR 5 MG TABLET 15 MG PO ×2 (03:44→06:52)
[2018-03-05 03:46] VITALS: BP 116/68; PULSE 83; RESP 16; TEMP 37.4; O2SAT 96
--- NOTE | 2018-03-05 07:42 | PM.PNPO.1 ---
Subjective Date Patient Seen: 03/05/18 Time Patient Seen: 07:42 Interval history: Pain better now 4/10 but a rough night. Feels like pills are wearing off too quickly and needing rescuse dilaudid IV. Exam Vital Signs (past 8 hours): - 03/04/18 23:50 03/05/18 03:46 Temperature 100.3 F H 99.3 F Pulse Rate 75 83 Respiratory Rate 16 16 Blood Pressure 125/66 116/68 Pulse Oximetry 93 96 Fraction of Inspired Oxygen 21 Oxygen Delivery Method Room Air Oxygen Flow Rate 0 Back/Spine/Pelvis Other: 5/5 motor BLE. dressing unchanged dry drainage Objective Labs Result Diagrams: 03/04/18 07:07 Assessment & Plan Post-op Postoperative Procedures Operation Date: 03/03/18 07:45 Actual Procedures Side Surgeon p L2-S1 Ant/Post Instru. Fusion w/Bone Graft(XLIF & TLIF)w/Laminectomy L5-S1 Sheng Krause MD Pain control getting better. Continue PT. Mobilize. Quality VTE Deep Vein Thrombosis/Pulmonary Embolism Present on Admission: No
[2018-03-05 07:45] VITALS: BP 120/62; PULSE 84; RESP 20; TEMP 36.8; O2SAT 94
[2018-03-05] MEDS: diazePAM 5 MG TABLET PO ×2 (08:02→22:19)
[2018-03-05] MEDS: MELOXICAM 7.5 MG TABLET 15 MG PO (08:20)
[2018-03-05] MEDS: LISINOPRIL 20 MG TABLET PO (08:20)
[2018-03-05] MEDS: GABAPENTIN 600 MG TABLET PO ×2 (08:20→19:02)
[2018-03-05] MEDS: AMLODIPINE 5 MG TABLET 10 MG PO (08:20)
[2018-03-05] MEDS: hydroCHLOROthiazide 25 MG TABLET PO (08:20)
[2018-03-05] MEDS: DOCUSATE 100 MG CAPSULE PO ×2 (08:20→18:58)
--- NOTE | 2018-03-05 09:30 | PT.IPTN ---
Current Diagnoses Other forms of scoliosis, lumbar region (03/03/18) Spinal stenosis, cervical region (03/03/18) Spinal stenosis, lumbar region with neurogenic claudication (03/03/18) Other intervertebral disc degeneration, lumbar region (03/03/18) Surgery Performed Operation Date: 03/03/18 07:45 Actual Procedures p L2-S1 Ant/Post Instru. Fusion w/Bone Graft(XLIF & TLIF)w/Laminectomy L5-S1 - Sheng Krause MD Physical Therapy Treatment Note M2 PT-IP Current Condition Start: 03/03/18 16:37 Freq: NEEDED Status: Active Protocol: Document 03/04/18 15:29 [facility] (Rec: 03/04/18 15:39 [facility] [id number]) Physical Therapy Current Condition Current Condition Evaluation Date 03/04/18 Precautions Lumbar Precautions Log Roll No Twisting Limit Bending Lifting Restriction of 10 lbs Gait Belt above Incisional Area M3 PT-IP Subjective Start: 03/03/18 16:37 Freq: NEEDED Status: Active Protocol: Document 03/05/18 09:30 [facility] (Rec: 03/05/18 12:24 [facility] [id number]) Subjective Physical Therapy Visit Type Type Treatment Note Visit Start Time 09:00 Visit Stop Time 09:30 Number of FOSTER WINDER Visits 2 Physical Therapy Visit Comments Patient Comments Pt states he willing to get up . Therapy Pain Assessment Pain When Pain Assessed At Rest Pain Present Pain Present Pain Reported Location Lower Back Intensity 4 Scale Used Numeric (1 - 10) M4 PT-IP Mobility and Gait Start: 03/03/18 16:37 Freq: NEEDED Status: Active Protocol: Document 03/05/18 09:30 [facility] (Rec: 03/05/18 12:24 [facility] [id number]) PT-Bed Mobility Assessment Rolling Type of Rolling Log Rolling Roll to Right Supine to Sit Supine to Sit Contact Guard Assistance Scooting Scooting to Edge of Bed Standby Assistance PT-Transfer Assessment Sit to and From Stand Sit to and from Stand Minimal Assistance 1 Person Assistance Use of Upper Extremities Equipment Transfer Assistive Device Front Wheeled Walker Transfers Transfer Destination Chair Transfer Ability Level of Assist Contact Guard Assistance Use of Upper Extremities Gait Assessment Gait Gait Assistance Required: Contact Guard Assist Distance (Feet) 200 Able to Maintain Weight Bearing Status Yes During Gait Assistive Devices Assistive Device 4 Wheeled Walker Orthotic/Prosthetic Devices or Brace: No Gait Deviations General Gait Pattern Antalgic Flexed Trunk Factors Limiting Gait Function Factors Limiting Gait Function Decreased Activity Tolerance Decreased Strength Pain Comments Gait Comments PT need cues to lock 4WW. M5 PT-IP Objective Assessments Start: 03/03/18 16:37 Freq: NEEDED Status: Active Protocol: Document 03/04/18 15:29 [facility] (Rec: 03/04/18 15:39 [facility] [id number]) Gross Range of Motion Upper Extremity ROM Assessment Within Functional Limits Lower Extremity ROM Assessment Within Functional Limits Strength Comments Strength Comments No MMT due to recent surgery. Patient able to perform loida ankle pumps, heelslides, and LAQ indep Muscle Tone Muscle Tone WNL Yes M6 PT-IP Treatment Start: 03/03/18 16:37 Freq: NEEDED Status: Active Protocol: Document 03/05/18 09:30 [facility] (Rec: 03/05/18 12:24 GGD [id number]) Physical Therapy Treatment Education Education Provided Precautions M7 PT-IP Assessment and Plan Start: 03/03/18 16:37 Freq: NEEDED Status: Active Protocol: Document 03/05/18 09:30 [facility] (Rec: 03/05/18 12:24 GGD [id number]) PT Summary Assessment and Plan Summary Assessment Summary Pt improving slowly. He was able to progress gait and safely use 4WW with cues. Pt needed less assistance for bed mobility. Frequency of Treatment Frequency Of Treatment Twice a Day Treatment Plan Other Recommendations and Next Treatment stairs with one rail and cane Focus before D/C Recommendations To Nursing Amount of Assist Needed 1 Person Assist Discharge Recommendations PT Discharge Recommendations Home with Assistance Outpatient PT
--- NOTE | 2018-03-05 10:19 | OT.IP.TRT ---
Current Diagnoses Other forms of scoliosis, lumbar region (03/03/18) Spinal stenosis, cervical region (03/03/18) Spinal stenosis, lumbar region with neurogenic claudication (03/03/18) Other intervertebral disc degeneration, lumbar region (03/03/18) Surgery Performed Operation Date: 03/03/18 07:45 Actual Procedures p L2-S1 Ant/Post Instru. Fusion w/Bone Graft(XLIF & TLIF)w/Laminectomy L5-S1 - Sheng Krause MD Occupational Therapy Treatment Note M2 OT-IP Current Condition Start: 03/04/18 17:18 Freq: Status: Active Protocol: Document 03/04/18 11:25 PJM (Rec: 03/04/18 17:34 PJM [id number]) Occupational Therapy Current Condition Current Condition Evaluation Date 03/04/18 Treatment Diagnosis decreased self care, functional mobility s/p L2-S1 fusion Diagnosis Onset Date 03/03/18 Post Operative Precautions Lumbar Precautions Log Roll No Twisting Limit Bending Lifting Restriction of 10 lbs Gait Belt above Incisional Area M3 OT- IP Subjective and Pain Start: 03/04/18 17:18 Freq: Status: Active Protocol: Document 03/05/18 10:19 PJM (Rec: 03/05/18 13:13 PJM [id number]) OT- Subjective Occupational Therapy Visit Type Type Treatment Note Visit Start Time 09:24 Visit Stop Time 10:19 Total Visit Minutes 55 Notes here for education this session. Occupational Therapy Visit Comments Patient Comments I feel better today. Patient/Caregiver Goals to go home tomorrow OT Pain Assessment Pain When Pain Assessed After Treatment Pain Present Pain Present Pain Reported Location Lower Back Intensity 5 Scale Used Numeric (1 - 10) Description Aching Acute M4 OT- IP ADL's Start: 03/04/18 17:18 Freq: Status: Active Protocol: Document 03/05/18 10:19 PJM (Rec: 03/05/18 13:13 PJM [id number]) OT ADL-Grooming General Evaluation Grooming Ability Independent Comments OT Grooming Comments after education re: body mechanics standing at sink 4-5 min OT ADL-Oral Care General Eval Oral Care Ability Independent Comments Oral Care Comments after education re: body mechanics standing at sink OT ADL-Dressing General Eval Upper Body Dressing Ability Standby Assistance Lower Body Dressing Ability Standby Assistance Areas Needing Assistance Retrieving/Set-up of Clothing Underpants/Brief Socks Assistive Devices Dressing Assistive Devices Long Handled Shoe Horn Electrician Bus Sock Aid Comments OT Dressing Comments Provided education re: adapted dressing techniques within lumbar spine precautions with center maker hand, long shoe horn and sock aid. Assisted with finding ersource for sock aid on line. OT ADL-Toileting General Evaluation Toileting Ability Standby Assistance Areas Needing Assistance Manage Clothing Perform Perineal Hygiene Comments OT Toileting Comments provided education re: body mechanics; can assist PRN ; will obtain BSC for use over toilet to increase height and provide armrests OT ADL-Bathing Comments OT Bathing Comments to be assessed, has borrowed shower seat for pt to use at home and she will obtain long bath sponge online M M6 OT- IP Functional Cognition Start: 03/04/18 17:18 Freq: Status: Active Protocol: Document 03/05/18 10:19 PJM (Rec: 03/05/18 13:13 PJ [id number]) Cognitive Factors Limiting Selfcare Function Cognitive Ability Level of Alertness Alert Patient Orientation Name Age Birthday Month Date Year Day of Week Place Situation Attention Span Ability Capable of Focused Attention Capable of Sustained Attention Ability to Follow Commands Able to Follow One Step Commands Memory Description No Deficits Noted Safety Awareness Decreased Ability to Apply Precautions Problem Solving Ability Needs Assist to Identify Solutions Cognitive Comments Cognitive Assessment Comments Pt calmer and less anxious about pain today with much improved attention/ concentration and ability to recall/apply lumbar spine precautions. able to cue pt appropriately. M7 OT- IP Mobility and Balance Start: 03/04/18 17:18 Freq: Status: Active Protocol: Document 03/05/18 10:19 PJM (Rec: 03/05/18 13:13 PJ [id number]) OT-Transfer Assessment Sit to and From Stand Sit to and from Stand Standby Assistance Transfers Transfer Ability Standby Assistance Technique Transfer Destination Car Chair Transfer Technique Stand Step Pivot Devices Transfer Assistive Devices Gait Belt 4 Wheeled Walker Comments Mobility Comments Pt needs SBA and min verbal cues for sit to stand and transfer techniques with 4WW. Provided education/demo re: car transfer techniques and will order handy bar online. OT- Gait Assessment Gait Gait Assistance Required: Standby Assistance Distance (Feet) 15 Assistive Devices Assistive Device Gait Belt 4 Wheeled Walker Comments Gait Ability Comments Pt walked to sink and back. OT- Balance Assessment Sitting Balance and Reactions Static Sitting Balance Ability Good Dynamic Sitting Balance Ability Good Standing Balance and Reactions Static Standing Balance Ability Good Dynamic Standing Balance Ability Good Comments Other Balance Tests/Deviations/Treatment during lower body clothing : management M M9 OT- IP Assessment and Plan Start: 03/04/18 17:18 Freq: Status: Active Protocol: Document 03/05/18 10:19 PJM (Rec: 03/05/18 13:13 PJM [id number]) OT Summary Assessment and Plan Potential Rehabilitation Potential Good Summary OT Impairments Pain Strength Functional Mobility Bathing Shower Transfers Progress Towards Goals Progressing Toward Goals Assessment Summary Pt much improved with functional mobility and self care skills today. Pt calmer and less pain focused with much improved attention/ concentration. He still needs min verbal cues for body mechanics during self care tasks, but able to cue pt appropriately and can assist PRN. Plan 1 additional OT visit to work on body mechanics during showering. Goals Grooming Goal Standby Assistance Dressing Goal Standby Assistance Long Handled Shoe Horn Electrician Bus Sock Aid Toileting Goal Standby Assistance Bathing Goal Standby Assistance Toilet Transfer Goal Standby Assistance Shower Transfer Goal Contact Guard Assistance Patient/Caregiver Education Goal Demonstrate Post-Op Precautions Demonstrate Energy Conservation and Pacing Caregiver Independent Assisting Patient OT-Other Goals Grooming to be done standing at sink wtih good body mechanics and no loss of balance Days to Meet Goals 3 Frequency of Treatment Frequency Of Treatment Once a Day Treatment Plan OT Treatment Plan ADL Training Functional Mobility Patient/Family Education Discharge Planning Discharge Recommendations OT Discharge Recommendations Home with 02/12 Assist
[2018-03-05] MEDS: GABAPENTIN 300 MG CAPSULE PO ×2 (11:21→18:59)
[2018-03-05 12:40] VITALS: BP 105/59; PULSE 60; RESP 24; TEMP 36.8; O2SAT 95
[2018-03-05] MEDS: HYDROMORPHONE 2 MG TABLET PO (14:06)
--- NOTE | 2018-03-05 14:30 | PT.IPTN ---
Current Diagnoses Other forms of scoliosis, lumbar region (03/03/18) Spinal stenosis, cervical region (03/03/18) Spinal stenosis, lumbar region with neurogenic claudication (03/03/18) Other intervertebral disc degeneration, lumbar region (03/03/18) Surgery Performed Operation Date: 03/03/18 07:45 Actual Procedures p L2-S1 Ant/Post Instru. Fusion w/Bone Graft(XLIF & TLIF)w/Laminectomy L5-S1 - Sheng Krause MD Physical Therapy Treatment Note M2 PT-IP Current Condition Start: 03/03/18 16:37 Freq: NEEDED Status: Active Protocol: Document 03/04/18 15:29 SAK (Rec: 03/04/18 15:39 SAK [id number]) Physical Therapy Current Condition Current Condition Evaluation Date 03/04/18 Precautions Lumbar Precautions Log Roll No Twisting Limit Bending Lifting Restriction of 10 lbs Gait Belt above Incisional Area M3 PT-IP Subjective Start: 03/03/18 16:37 Freq: NEEDED Status: Active Protocol: Document 03/05/18 15:00 GGD (Rec: 03/05/18 16:13 GGD [id number]) Subjective Physical Therapy Visit Type Type Treatment Note Visit Start Time 14:30 Visit Stop Time 15:00 Total Visit Minutes 30 Number of CHEMICAL PROCESSING SUPERVISOR Visits 3 Physical Therapy Visit Comments Patient Comments HE would like to walk. Therapy Pain Assessment Pain When Pain Assessed At Rest Pain Present Pain Present Pain Reported Location Lower Back Intensity 2 Scale Used Numeric (1 - 10) M4 PT-IP Mobility and Gait Start: 03/03/18 16:37 Freq: NEEDED Status: Active Protocol: Document 03/05/18 15:00 GGD (Rec: 03/05/18 16:13 GGD [id number]) PT-Transfer Assessment Sit to and From Stand Sit to and from Stand Contact Guard Assistance 1 Person Assistance Use of Upper Extremities Equipment Transfer Assistive Device Front Wheeled Walker Transfers Transfer Destination Chair Transfer Ability Level of Assist Contact Guard Assistance Use of Upper Extremities Gait Assessment Gait Gait Assistance Required: Contact Guard Assist Distance (Feet) 1,000 Able to Maintain Weight Bearing Status Yes During Gait Assistive Devices Assistive Device 4 Wheeled Walker Orthotic/Prosthetic Devices or Brace: No Gait Deviations General Gait Pattern Antalgic Flexed Trunk Factors Limiting Gait Function Factors Limiting Gait Function Decreased Activity Tolerance Decreased Strength Pain Comments Gait Comments PT need cues for pace with gait. Stair Climbing Assessment Evaluation Level of Assist On Stairs Contact Guard Assistance Devices Stair Climbing Assistive Devices Straight Cane Left Railing Technique/Endurance Stair Climbing Direction Ascend and Descend Stair Climbing Technique Step Over Step Number of Steps Climbed 3 Query Text: Stair Climbing Set # Repetitions (reps) 2 M5 PT-IP Objective Assessments Start: 03/03/18 16:37 Freq: NEEDED Status: Active Protocol: Document 03/04/18 15:29 SAK (Rec: 03/04/18 15:39 SAK [id number]) Gross Range of Motion Upper Extremity ROM Assessment Within Functional Limits Lower Extremity ROM Assessment Within Functional Limits Strength Comments Strength Comments No MMT due to recent surgery. Patient able to perform loida ankle pumps, heelslides, and LAQ indep Muscle Tone Muscle Tone WNL Yes M6 PT-IP Treatment Start: 03/03/18 16:37 Freq: NEEDED Status: Active Protocol: Document 03/05/18 15:00 GGD (Rec: 03/05/18 16:13 GGD [id number]) Physical Therapy Treatment Education Education Provided Precautions M7 PT-IP Assessment and Plan Start: 03/03/18 16:37 Freq: NEEDED Status: Active Protocol: Document 03/05/18 15:00 GGD (Rec: 03/05/18 16:13 GGD [id number]) PT Summary Assessment and Plan Summary Assessment Summary Pt improving with mobility and pain control. He was safe with stair mobility. He did need cues for pace with gait. He safe for D/C home when medically stable. Frequency of Treatment Frequency Of Treatment Twice a Day Treatment Plan Physical Therapy Treatment Plan Bed Mobility Training Transfer Training Gait Training Therapeutic Exercise Post Op Education Recommendations To Nursing Amount of Assist Needed 1 Person Assist Discharge Recommendations PT Discharge Recommendations Home with Assistance Outpatient PT
[2018-03-05 15:15] VITALS: BP 121/63; PULSE 79; RESP 18; TEMP 36.8
[2018-03-05] MEDS: SENNOSIDES 8.6 MG TABLET 17.2 MG PO (18:59)
[2018-03-05] MEDS: TAMSULOSIN 0.4 MG CAPSULE PO (18:59)
[2018-03-05] MEDS: PRAVASTATIN 20 MG TABLET 10 MG PO (18:59)
[2018-03-05 20:11] VITALS: BP 115/61; PULSE 78; RESP 18; TEMP 36.9; O2SAT 93
[2018-03-06 01:44] VITALS: BP 106/57; PULSE 74; RESP 16; TEMP 36.8; O2SAT 95
[2018-03-06 05:23] VITALS: BP 103/61; PULSE 72; RESP 16; TEMP 36.8; O2SAT 92
[2018-03-06] MEDS: OXYCODONE IR 5 MG TABLET 10 MG PO (06:02)
--- NOTE | 2018-03-06 07:49 | PM.PNPO.1 ---
Subjective Date Patient Seen: 03/06/18 Time Patient Seen: 07:49 Interval history: Patient is postop day 3. Status post Lisa/fusion by Dr. Krause. Notes that yesterday he was doing much better on Dilaudid orally it was able to ambulate down the hallway. This morning his pain is not as well controlled. He was given oxycodone 10 mg this morning for pain. Eating and drinking well. Does not feel he is ready to go home this morning due to pain control issues. Exam Vital Signs (past 8 hours): - 03/06/18 01:44 03/06/18 05:23 Temperature 98.3 F 98.3 F Pulse Rate 74 72 Respiratory Rate 16 16 Blood Pressure 106/57 L 103/61 Pulse Oximetry 95 92 Fraction of Inspired Oxygen 21 Oxygen Delivery Method Room Air Oxygen Flow Rate 0 Narrative Exam Narrative: Patient in bed. Alert orient x3. Left lateral dressing intact with dried blood. Back dressing with dried blood and starting to come off. Five hundred five BLE strength. Bilateral calf soft and nontender. Neurovascular status intact. Objective Labs Result Diagrams: 03/04/18 07:07 Assessment & Plan Post-op Postoperative Procedures Operation Date: 03/03/18 07:45 Actual Procedures Side Surgeon p L2-S1 Ant/Post Instru. Fusion w/Bone Graft(XLIF & TLIF)w/Laminectomy L5-S1 Sheng Krause MD Postop day 3. Discussion with nurse on duty and she states the patient is doing better with oral Dilaudid yesterday but he was given oral oxycodone last night. Will switch him back to oral Dilaudid for pain control. Continue physical therapy. Dressings will be changed. Lifting bending twisting precautions. Plan for possible discharge home tomorrow. Quality VTE Deep Vein Thrombosis/Pulmonary Embolism Present on Admission: No
[2018-03-06] MEDS: GABAPENTIN 600 MG TABLET PO (08:11)
[2018-03-06] MEDS: DOCUSATE 100 MG CAPSULE PO (08:11)
[2018-03-06] MEDS: hydroCHLOROthiazide 25 MG TABLET PO (08:11)
[2018-03-06] MEDS: MELOXICAM 7.5 MG TABLET 15 MG PO (08:11)
[2018-03-06] MEDS: LISINOPRIL 20 MG TABLET PO (08:11)
[2018-03-06] MEDS: AMLODIPINE 5 MG TABLET 10 MG PO (08:11)
[2018-03-06] MEDS: HYDROMORPHONE 2 MG TABLET PO ×2 (08:11→10:42)
--- NOTE | 2018-03-06 08:16 | PM.PNPO.1 ---
Subjective Date Patient Seen: 03/06/18 Time Patient Seen: 08:16 Interval history: He did great once we had switched him over to oral Dilaudid yesterday. However had 1 dose of oxycodone overnight and pain was all back. Much better again now that he is back to the Dilaudid. He was up yesterday walking around the halls and even doing stairs. Exam Vital Signs (past 8 hours): - 03/06/18 01:44 03/06/18 05:23 Temperature 98.3 F 98.3 F Pulse Rate 74 72 Respiratory Rate 16 16 Blood Pressure 106/57 L 103/61 Pulse Oximetry 95 92 Fraction of Inspired Oxygen 21 Oxygen Delivery Method Room Air Oxygen Flow Rate 0 Back/Spine/Pelvis Other: Minimal dry drainage. 5/5 motor both lower extremities Objective Labs Result Diagrams: 03/04/18 07:07 Assessment & Plan Post-op Postoperative Procedures Operation Date: 03/03/18 07:45 Actual Procedures Side Surgeon p L2-S1 Ant/Post Instru. Fusion w/Bone Graft(XLIF & TLIF)w/Laminectomy L5-S1 Sheng Krause MD he is doing much better today. Continue on oral Dilaudid. Plan to send home after physical therapy. Quality VTE Deep Vein Thrombosis/Pulmonary Embolism Present on Admission: No
--- NOTE | 2018-03-06 08:20 | P.DS_ITS ---
History of Present Illness Date Patient Seen: 03/06/18 Time Patient Seen: 08:17 Chief complaint: [id number] Narrative: 62-year-old male with spinal stenosis. He has been through therapy and epidural injections. Pain in the back with pain weakness and numbness in the legs. Discharge Providers Date of admission: 03/03/18 06:08 Primary care physician: Jose Juarez MD Consults: 03/03/18 14:45 Consult to Occupational Therapy Evaluate & Treat Comment: Physician Instructions: Evaluate and treat Consult to Physical Therapy Evaluate & Treat Comment: Physician Instructions: Evaluate and Treat Discharge provider: Shegn Krause MD Discharge Date: 03/06/18 Summary Discharge Diagnosis: Lumbar stenosis with radiculopathy Lumbar scoliosis Hospital Course: He was admitted to the hospital on 03/03/2018. He underwent a L2 through S1 anterior and posterior instrumented fusion with a laminectomy at L5-S1. He had significant pain control at 1st but was switched over from oxycodone to oral Dilaudid and did very well with that. He was then able to mobilize with therapy. By postoperative day 3, he was ready for discharge home. He had already done stairs and was becoming independent with mobility. Exam Vital Signs (past 8 hours): - 03/06/18 01:44 03/06/18 05:23 Temperature 98.3 F 98.3 F Pulse Rate 74 72 Respiratory Rate 16 16 Blood Pressure 106/57 L 103/61 Pulse Oximetry 95 92 Fraction of Inspired Oxygen 21 Oxygen Delivery Method Room Air Oxygen Flow Rate 0 Const Orientation: alert and oriented x3 Back/Spine/Pelvis Other: Unchanged dry drainage. 5/5 motor both lower extremities Objective Labs Result Diagrams: 03/04/18 07:07 Discharge Plan Discharge Plan Patient Disposition: Home Discharge comment: Follow-up 1.5 weeks Discharge Med Rec/Prescriptions Prescriptions: New diazepam 5 mg Tablet 5 mg PO Q6HR PRN (Reason: spasms) Qty: 20 RF: 0 docusate sodium 100 mg Capsule 100 mg PO BID PRN (Reason: constipation) Qty: 30 RF: 0 hydromorphone 2 mg Tablet See Label Instructions .ROUTE .COMPLEX PRN (Reason: Pain, Severe (7-10)) Qty : 60 RF: 0 Continue meloxicam 15 mg Tablet 15 mg PO QAM RF: 0 clonazepam 0.5 mg Tablet 0.5 mg PO TID PRN (Reason: Anxiety) RF: 0 pravastatin 10 mg Tablet 10 mg PO QPM RF: 0 tamsulosin 0.4 mg Capsule 0.4 mg PO QPM RF: 0 amlodipine 10 mg Tablet 10 mg PO DAILY RF: 0 gabapentin 300 mg Capsule 600 mg PO BID RF: 0 gabapentin 300 mg Capsule 300 mg PO QNOON RF: 0 lisinopril-hydrochlorothiazide 20-25 mg Tablet 1 tab PO DAILY RF: 0 ranitidine HCl 150 mg Capsule 150 mg PO BID RF: 0 Provider Discharge Instructions Activity: max 10 lbs lift, limited bend and twist Skin/Wound/Dressing Care Dressing: may change dressing and shower POD #5 (Friday) Discharge Data Primary Care Provider: Jose Juarez Attending Provider: Sheng Krause Admit Date/Time: 03/03/18 06:08 Quality VTE Deep Vein Thrombosis/Pulmonary Embolism Present on Admission: No
[2018-03-06 08:25] VITALS: BP 138/75; PULSE 90; RESP 16; TEMP 37.1; O2SAT 90
--- NOTE | 2018-03-06 10:25 | OT.IP.TRT ---
Current Diagnoses Other forms of scoliosis, lumbar region (03/03/18) Spinal stenosis, cervical region (03/03/18) Spinal stenosis, lumbar region with neurogenic claudication (03/03/18) Other intervertebral disc degeneration, lumbar region (03/03/18) Surgery Performed Operation Date: 03/03/18 07:45 Actual Procedures p L2-S1 Ant/Post Instru. Fusion w/Bone Graft(XLIF & TLIF)w/Laminectomy L5-S1 - Sheng Krause MD Occupational Therapy Treatment Note M3 OT- IP Subjective and Pain Start: 03/04/18 17:18 Freq: Status: Active Protocol: Document 03/06/18 10:25 PJM (Rec: 03/06/18 13:09 PJM [id number]) OT- Subjective Occupational Therapy Visit Type Type Treatment Note Visit Start Time 09:30 Visit Stop Time 10:25 Notes Pt requesting to shower prior to d/c. here at end of session for further education Occupational Therapy Visit Comments Patient Comments I feel much better after that shower. Patient/Caregiver Goals to go home today OT Pain Assessment Pain When Pain Assessed After Treatment Pain Present Pain Present Pain Reported Location Lower Back Intensity 5 Scale Used Numeric (1 - 10) Description Aching Acute Management Techniques Distraction Re-positioning Timing of Activity with Medications M4 OT- IP ADL's Start: 03/04/18 17:18 Freq: Status: Active Protocol: Document 03/06/18 10:25 PJM (Rec: 03/06/18 13:09 PJM [id number]) OT ADL-Oral Care General Eval Oral Care Ability Standby Assistance Areas of Assistance Brushing Teeth Devices Oral Care Devices Toothbrush Comments Oral Care Comments standing at sink; min verbal cues to avoid twisting and for 4WW positioning near sink OT ADL-Dressing General Eval Upper Body Dressing Ability Independent Lower Body Dressing Ability Standby Assistance Minimal Assistance Areas Needing Assistance Pull-Over Shirt Underpants/Brief Pants/Shorts Socks Shoes Assistive Devices Dressing Assistive Devices Long Handled Shoe Horn Sweetbread Trimmer Sock Aid Comments OT Dressing Comments Pt needs min assist and verbal cues for sock aid use. has purchased sock aid for pt. He has oil operator and long shoe horn. OT ADL-Toileting General Evaluation Toileting Ability Independent OT ADL-Bathing Bathing Type Bathing Type Shower General Evaluation Bathing Ability Minimal Assistance Areas Needing Assistance Retrieving/Setting Up Items Wash/Dry Back Comments OT Bathing Comments Pt needs SBA to min assist with shower. Provided education to pt/. has obtained shower chair for pt. Pt has long bath sponge and suction grab bar in shower stall at home. Pt stood for ~ 80% of shower with no loss of balance. M7 OT- IP Mobility and Balance Start: 03/04/18 17:18 Freq: Status: Active Protocol: Document 03/06/18 10:25 PJM (Rec: 03/06/18 13:09 [facility] [id number]) OT-Transfer Assessment Sit to and From Stand Sit to and from Stand Standby Assistance Transfers Transfer Ability Standby Assistance Technique Transfer Destination Chair Shower Stall Toilet Transfer Technique Stand Step Pivot Devices Transfer Assistive Devices Gait Belt 4 Wheeled Walker OT- Gait Assessment Gait Gait Assistance Required: Standby Assistance Distance (Feet) 30 Assistive Devices Assistive Device Gait Belt 4 Wheeled Walker OT- Balance Assessment Sitting Balance and Reactions Static Sitting Balance Ability Good Dynamic Sitting Balance Ability Good Standing Balance and Reactions Static Standing Balance Ability Good Dynamic Standing Balance Ability Good M9 OT- IP Assessment and Plan Start: 03/04/18 17:18 Freq: Status: Active Protocol: Document 03/06/18 10:25 PJM (Rec: 03/06/18 13:09 [email or web address]) OT Summary Assessment and Plan Summary Progress Towards Goals Safe For Discharge Goals Met Assessment Summary Pt performs slowly and still needs occasional min cues to avoid twisting and to problem solve use of adaptive equipt. able to cue and assist pt appropriately. All OT goals achieved. Pt to d/c home today . Frequency of Treatment Frequency Of Treatment Discharge Discharge Recommendations OT Discharge Recommendations Home with 02/12 Assist
--- NOTE | 2018-03-06 11:01 | PC.NURSE ---
Discharge: Pt dressed in own clothes, belongings taken down to POV by , medicated before discharge for pain. In wheelchair to POV accompanied by and FRONT OFFICE MEDICAL ASSISTANT. Discharge instructions given and understood, new medications filled by before discharge, no other issues noted.
== END 2018-03-06 11:04 | disposition home or self-care (01) | DRG 455 ==
PROVIDERS: Admitting Provider Orthopaedic Surgery; Family Provider Family Medicine; PCP Family Medicine; Visit Provider Orthopaedic Surgery
PROC: 0SG00A0 Fusion of Lumbar Vertebral Joint with Interbody Fusion Device, Anterior Approach, Anterior Column, Open Approach (ICD-10-PCS; CPT 22558; principal; 2018-03-03 07:45)
DX: M48.062 Spinal stenosis, lumbar region with neurogenic claudication (principal); M51.36 Other intervertebral disc degeneration, lumbar region; M81.0 Age-related osteoporosis without current pathological fracture; I10 Essential (primary) hypertension; E11.9 Type 2 diabetes mellitus without complications; F32.9 Major depressive disorder, single episode, unspecified; Z87.891 Personal history of nicotine dependence
CPT/HCPCS: 36415; 36592; 72100; 76001; 85014; 85018; 97116; 97162; 97165; 97530; 97535; C1776; C1788; J0330; J0595; J0690; J1170; J2060; J2250; J2274; J2405; J2704; J2765; J3010; J3410

== ENCOUNTER → 2018-08-10 14:26 | Outpatient (CLI) | payer OTHER, SELFPAY ==
[2018-03-03 14:47] VITALS: BMI 29.3
--- NOTE | 2018-08-10 | DI.CT.S_ITS ---
PROCEDURE: CT LUMBAR SPINE WO CON INDICATIONS: STRAIN OF MUSCLE FASCIA AND TENDON OF LOWER BACK TECHNIQUE: Noncontrast 3 mm thick sections acquired from the T12 level to the sacrum. Sagittal and coronal reformats were constructed. For radiation dose reduction, the following was used: automated exposure control. COMPARISON: [facility] [place], CR, XR LUMBAR SPINE FLEXION EXTENSION, 11/19/2017, 10:58. [facility], CR, XR LUMBAR SPINE 2-3V, 03/03/2018, 8:24. [facility] [place], CR, XR LUMBAR SPINE 2 OR 3 VIEWS, 08/05/2018, 13:14. [facility] [place], CR, XR LUMBAR SPINE 2 OR 3 VIEWS, 06/10/2018, 10:46. [facility] [place], CR, XR LUMBAR SPINE 2 OR 3 VIEWS, 03/13/2018, 13:14. FINDINGS: Image quality: Excellent. Bones: No evidence of acute fracture. Postsurgical changes related to paraspinal rods pedicle screw fixation from L2-S1. Interbody cage grafts noted at L2-L3, L3-L4, L4-L5 and L5-S1. As expected, unchanged postoperative alignment. No evidence of hardware failure. There is lucency at the bone metal interface of the right S1 pedicle screw raising possibility of loosening versus infection. No definite bridging ossification is seen at the lumbar disc spaces. Multilevel spondylosis and facet arthropathy. Status post L5-S1 right laminotomy T12-L1: No bony canal or foraminal stenosis L1-L2: No bony canal stenosis. Mild right and left bony foraminal narrowing. L2-L3: No bony canal stenosis. Mild bilateral bony foraminal narrowing. L3-L4: No bony canal narrowing. No right bony foraminal stenosis. Mild to moderate left bony foraminal narrowing L4-L5: No bony canal stenosis. Moderate left and [id number] right bony foraminal narrowing L5-S1: No canal stenosis. Mild left bony foraminal narrowing. No definite right bony foraminal stenosis Soft tissues: No retroperitoneal masses or hematomas. Visualized aorta is normal in caliber. IMPRESSION: Postsurgical changes as above from L2-S1. Prominent lucency at the bone metal interface of the right S1 pedicle screw raising possibility of hardware loosening, versus infection. Moderate left and [id number] right L4-L5 bony foraminal stenoses. Dictated by: Jacob Cedillo M.D. on 08/10/2018 at 16:13 Approved by: Jacob Cedillo M.D. on 08/10/2018 at 16:28
== END ==
PROVIDERS: Family Provider Family Medicine; PCP Family Medicine; Visit Provider Orthopaedic Surgery
DX: S39.012A Strain of muscle, fascia and tendon of lower back, initial encounter (principal); M48.061 Spinal stenosis, lumbar region without neurogenic claudication; Z98.1 Arthrodesis status
CPT/HCPCS: 72131

== ENCOUNTER → 2020-01-27 12:56 | Outpatient (CLI) | payer OTHER, SELFPAY ==
[2018-03-03 14:47] VITALS: BMI 29.3
--- NOTE | 2020-01-27 | DI.CT.S_ITS ---
PROCEDURE: CT LUMBAR SPINE WO CON INDICATIONS: Arthrodesis status TECHNIQUE: Noncontrast 3 mm thick sections acquired from the T12 level to the sacrum. Sagittal and coronal reformats were constructed. In this patient, 3-D reformatted images were also performed. For radiation dose reduction, the following was used: automated exposure control. COMPARISON: [facility], CT, IVP (ABD & PEL WWO CONTRAST), 06/21/2016, 10:39. [facility], CR, XR LUMBAR SPINE 2 OR 3 VIEWS, 08/05/2018, 13:14. [facility], CR, XR LUMBAR SPINE 2 OR 3 VIEWS, 12/09/2018, 11:08. [facility], CT, CT LUMBAR SPINE WO CON, 08/10/2018, 14:44. FINDINGS: Image quality: Excellent. Bones: No acute vertebral body compression fractures. No suspicious lytic or blastic bony lesions. Central spinal caliber is of normal overall caliber. No pars defects. Gxln-ln-idbbiyxb dextroconvex scoliosis is seen. There is minimal retrolisthesis seen at the L3-L4 and the L5-S1 levels. Extensive lumbosacral fixation hardware is seen, with bilateral pedicle screws at L2, L3, L4, L5, and S1. The screws appear well placed. Disc spacers are seen at L2-L3, L3-L4, L4-L5, and L5-S1. There is again seen prominent lucency adjacent to the right S1 screw. The degree of lucency is slightly worse on the current study than on the prior. No other findings of hardware failure or hardware loosening are seen. There has been removal of portions of the posterior elements. T12-L1: No significant abnormality is seen. L1-L2: Level within normal limits. L2-L3: Postoperative changes are seen at this level. Endplate irregularity is seen. At least moderate disc bulge is seen, which is eccentric to the right. Bridging endplate osteophytes are seen on the right. There is cakc-xo-jpqxcctx right-sided and moderate left-sided neural foraminal narrowing seen. Mild central canal narrowing is seen. When comparison is made with the prior examination, these findings are similar. L3-L4: At least moderate disc bulge is seen. There is lmsb-gk-cihfhtyy left-sided and mild right-sided neural foraminal narrowing seen. Mild central canal narrowing is seen. When comparison is made with the prior examination, these findings are similar. L4-L5: Moderate to prominent disc bulge is seen, which is eccentric to the left. Mild facet joint hypertrophy is seen. There is cdpl-iw-dkxzzgiw left-sided and moderate right-sided neural foraminal narrowing seen. Mild central canal narrowing is seen. When comparison is made with the prior examination, these findings are similar. L5-S1: Moderate to severe loss of disc height is seen. Vacuum disc phenomenon is seen at this level. Endplate irregularity and sclerosis can be seen. Posteriorly projected endplate osteophytes are seen. There is moderate left-sided and folw-rr-sbpigcem right-sided neural foraminal narrowing seen. No central canal narrowing is seen. When comparison is made with the prior examination, these findings are similar. Soft tissues: No retroperitoneal masses or hematomas. Visualized aorta is normal in caliber. Atherosclerotic calcification is noted. IMPRESSION: Worsening lucency adjacent to the right S1 screw, which is consistent with progressive loosening. Otherwise, unremarkable hardware. Multiple levels of degenerative change are seen, which are not significantly progressed compared to the prior CT. Dictated by: Luís Raines M.D. on 01/27/2020 at 13:22 Approved by: Luís Raines M.D. on 01/27/2020 at 13:29
== END ==
PROVIDERS: Family Provider Family Medicine; PCP Family Medicine; Referring Provider Family Medicine; Visit Provider Orthopaedic Surgery
DX: M47.816 Spondylosis without myelopathy or radiculopathy, lumbar region (principal); Z98.1 Arthrodesis status
CPT/HCPCS: 72131

== ENCOUNTER → 2020-02-03 18:18 | Outpatient (ROUT) | payer OTHER, SELFPAY ==
[2018-03-03 14:47] VITALS: BMI 29.3
[2020-02-03 18:40] LABS: Alanine Aminotransferase 27 IU/L (<50); Albumin 3.7 g/dL (3.5-5.0); Albumin Globulin Ratio 1.2 (1.0-2.8); Alkaline Phosphatase 84 U/L (38-126); Aspartate Aminotransferase 34 IU/L (17-59); Bilirubin Total 0.3 mg/dL (0.2-1.3); Blood Urea Nitrogen 19 mg/dL (9-20); Calcium 8.9 mg/dL (8.4-10.2); Carbon Dioxide 28 mmol/L (22-32); Chloride 100 mmol/L (98-107); Estimated Glomerular Filt Rate > 60.0 mL/min (>60); Globulin 3.2 g/dL (1.7-4.1); Glucose 222 mg/dL (80-110); HEMOLYSIS 25 (0-50); Potassium 4.4 mmol/L (3.4-5.1); Sodium 137 mmol/L (137-145); Total Protein 6.9 g/dL (6.3-8.2)
[2020-02-03 19:13] LABS: White Blood Cell Count 9.2 X10^3/uL (4.5-11.0)
[2020-02-03 19:14] LABS: Hematocrit 40.7 % (41-53); Hemoglobin 13.8 g/dL (13.5-17.5); Mean Corpuscular Hemoglobin 32.7 PG (26-34); Mean Corpuscular Volume 96.3 fL (80-100); Red Blood Cell Count 4.22 X10^6/uL (4.5-5.9); Red Cell Distribution Width 16.9 % (11.6-14.8)
[2020-02-03 19:15] LABS: Add Manual Diff / Slide Review NO; Basophils Percent Auto 1.3 % (0-2); Eosinophils Percent Auto 2.8 % (2-4); Lymphocytes Percent Auto 20.8 % (25-40); Monocytes Percent Auto 10.2 % (3-14); Neutrophils Percent Auto 64.9 % (50-75)
[2020-02-03 19:16] LABS: Basophils Absolute Auto 100 /uL (0-100); Eosinophils Absolute Auto 200 /uL (0-450); Lymphocytes Absolute Auto 1200 /uL (1100-4500); Monocytes Absolute Auto 600 /uL (0-900); Neutrophils Absolute Auto 3600 /uL (1500-7000)
== END ==
PROVIDERS: Family Provider Family Medicine; PCP Family Medicine; Visit Provider Internal Medicine Infectious Disease
DX: K57.20 Diverticulitis of large intestine with perforation and abscess without bleeding (principal)
CPT/HCPCS: 80053; 85025

== ENCOUNTER → 2022-02-27 12:32 | Outpatient (CLI) | payer OTHER, SELFPAY ==
[2018-03-03 14:47] VITALS: BMI 29.3
--- NOTE | 2022-02-27 | DI.CT.S_ITS ---
PROCEDURE: CT LUMBAR SPINE WO CON INDICATIONS: LUMBAR STENOSIS WTIH NEUROGENIC CLAUDICATION TECHNIQUE: Noncontrast 3 mm thick sections acquired from the T12 level to the sacrum. Sagittal and coronal reformats were constructed. For radiation dose reduction, the following was used: automated exposure control. COMPARISON: [facility], CT, CT LUMBAR SPINE WO CON, 08/10/2018, 14:44. [facility], MR, MR LUMBAR SPINE WITH/WITHOUT CONTRAST, 11/27/2020, 13:00. [facility], CR, XR LUMBAR SPINE 2 OR 3 VIEWS, 11/06/2020, 17:05. FINDINGS: Straightening of the usual lumbar lordosis at the operative levels. Otherwise normal alignment. Vertebral body heights maintained. No suspicious lytic or blastic osseous lesion. No acute fracture. There is abnormal lucency surrounding the right S1 pedicle screw in both the pedicle and vertebral body. This has been present since 08/10/2018. Remainder of the hardware demonstrates no abnormal adjacent lucency There is some possible substance of the L5-S1 interbody device which does not appear incorporated. There are multilevel multifactorial degenerative changes producing varying degrees of spinal canal and neural foraminal stenosis which appear unchanged when compared with 11/27/2020 examination. IMPRESSION: Suspected subsidence and/or loosening of the right S1 pedicle screw and the L5-S1 interbody device, both of which demonstrate abnormal lytic change and lucency surrounding the hardware. Mixed lytic and sclerotic changes at the L5-S1 level have progressed when compared with 08/10/2018 and 01/27/2020 exams, suggesting loosening and possible infection or advancing degenerative change due to motion/instability. Dictated by: Tree Marley M.D. on 02/27/2022 at 16:15 Approved by: Tree Marley M.D. on 02/27/2022 at 16:21
== END ==
PROVIDERS: Family Provider Family Medicine; PCP Internal Medicine; Referring Provider Orthopaedic Surgery Orthopaedic Surgery of the Spine; Visit Provider Orthopaedic Surgery Orthopaedic Surgery of the Spine
DX: M48.062 Spinal stenosis, lumbar region with neurogenic claudication (principal); M47.816 Spondylosis without myelopathy or radiculopathy, lumbar region; Z98.1 Arthrodesis status
CPT/HCPCS: 72131

== ENCOUNTER → 2022-05-09 09:05 | Outpatient (CLI) | payer OTHER, SELFPAY ==
[2018-03-03 14:47] VITALS: BMI 29.3
--- NOTE | 2022-05-09 | DI.MRI.S_ITS ---
PROCEDURE: MR LUMBAR SPINE WO CON INDICATIONS: SPINAL STENOSIS TECHNIQUE: Noncontrast sagittal T1 spin echo and T2 fast echo, sagittal STIR, and T2 fast spin echo through the lumbar spine. In cases with scoliosis, additional coronal T2 fast spin echo may be performed. COMPARISON: [facility], MR, MR LUMBAR SPINE WITH/WITHOUT CONTRAST, 11/27/2020, 13:00. [facility], MR, MR LUMBAR SPINE WITHOUT CONTRAST, 10/22/2017, 13:30. [facility], MR, L-SPINE WITHOUT CONTRAST, 01/17/2015, 15:39. [facility], CT, CT LUMBAR SPINE WO CON, 02/27/2022, 12:39. [facility], MR, L-SPINE WITHOUT CONTRAST, 10/09/2012, 16:58. FINDINGS: Image quality: There is artifact associated with the metallic hardware. Alignment and Curvature: There is overall straightening of the normal lumbar lordosis. No focal AP alignment abnormality is seen. Bone Marrow: Marrow is of normal overall signal. No acute vertebral body compression fractures. Spinal Cord: Conus medullaris terminates at the L1 level. Visualized cord demonstrates normal signal and size. Paraspinous Soft Tissues: No paravertebral masses. Postoperative changes are seen, with bilateral pedicle screws L2 through S1. Vertical fixation rods are seen. Disc spacers are seen throughout the fused region. There has been removal of portions of the posterior elements. T11-T12: Moderate loss of disc height is seen. Loss of disc signal is seen. Mild to moderate disc bulge is seen, with a central/left disc extrusion, with inferior migration of the disc material. There is apparent sequestered disc fragment seen posterior to the T12 vertebral body on the left, as on series 2, image 10, measuring up to 13 mm. The disc extrusion is new compared to the prior outside study. T12-L1: Normal appearance. L1-L2: Moderate to severe loss of disc height and disc signal can be seen. Reactive marrow endplate changes are seen which are hypointense on T1-weighted imaging and hyperintense on T2 weighted imaging, which is most consistent with edema (Modic type I changes). Prominent disc bulge is seen, which is eccentric to the right. There is a superimposed central disc protrusion. Moderate facet joint hypertrophy is seen. Mild to moderate facet hypertrophy is seen. There is moderate to severe bilateral neural foraminal narrowing seen, with an associated a degree of compression seen upon the exiting nerve roots. Moderate to severe central canal narrowing is also seen at this level. This level is clearly worse than in 2021. L2-L3: Postoperative changes seen at this level. Mild to moderate disc bulge is seen, which is eccentric to the right. There is mild right-sided and no significant left-sided neural foraminal narrowing. Minimal central canal narrowing is seen. When comparison is made with the prior images, these findings are similar. L3-L4: Mild generalized disc bulge is seen. Mild to moderate facet hypertrophy is seen. Moderate bilateral neural foraminal narrowing is seen. No central canal narrowing is seen. No significant change from the prior. L4-L5: Moderate generalized disc bulge is seen. Moderate facet joint hypertrophy is seen. At least moderate bilateral neural foraminal narrowing can be seen. Mild central canal narrowing is seen. L5-S1: Moderate to severe loss of disc height and disc signal can be seen. Moderate to prominent disc bulge is seen, which is eccentric to the right. Moderate facet joint hypertrophy is seen. There is moderate to severe bilateral neural foraminal narrowing seen, with an associated a degree of compression seen upon the exiting nerve roots. The central canal is widely patent. When comparison is made with the prior images, these findings are similar. IMPRESSION: There is a new disc extrusion, with a 13 mm sequestered disc fragment seen along the left aspect of the T11-T12 level. Clear interval progression of degenerative change at the L1-L2 level compared to 202. Extensive postoperative hardware seen L2 through S1, which appears similar to the prior. Dictated by: Luís Raines M.D. on 05/09/2022 at 11:24 Approved by: Luís Raines M.D. on 05/09/2022 at 11:43
== END ==
PROVIDERS: Family Provider Family Medicine; PCP Internal Medicine; Referring Provider Orthopaedic Surgery Orthopaedic Surgery of the Spine; Visit Provider Orthopaedic Surgery Orthopaedic Surgery of the Spine
DX: M48.061 Spinal stenosis, lumbar region without neurogenic claudication (principal); M51.24 Other intervertebral disc displacement, thoracic region; M47.816 Spondylosis without myelopathy or radiculopathy, lumbar region; Z98.1 Arthrodesis status
CPT/HCPCS: 72148

== ENCOUNTER 2022-07-03 05:49 | Day surgery (SDC) | payer OTHER, SELFPAY ==
[2018-03-03 14:47] VITALS: BMI 29.3
[2022-06-26 12:05] VITALS: BMI 26.4
[2022-07-03] VITALS (7 sets, daily range): BP systolic 92–134; BP diastolic 51–83; PULSE 60–69; RESP 12–16; TEMP 36.4–36.6; O2SAT 92–98; BMI 26.8
--- NOTE | 2022-07-03 | DI.RAD.S_ITS ---
PROCEDURE: XR THORACIC SPINE 2V INDICATIONS: T SPINE MICRO DISCECTOMY TECHNIQUE: 3 views of the thoracic spine were acquired. COMPARISON: [facility], MR, MR LUMBAR SPINE WO CON, 05/09/2022, 9:41. [facility], CT, CT LUMBAR SPINE WO CON, 02/27/2022, 12:39. FINDINGS: 2 intraoperative fluoroscopy images demonstrate a surgical port posterior to the T11-T12 level. IMPRESSION: Fluoroscopy for intraoperative localization. Dictated by: Franklin Hawkins M.D. on 07/03/2022 at 12:05 Approved by: Franklin Hawkins M.D. on 07/03/2022 at 12:07
[2022-07-03] MEDS: LACTATED RINGERS 1,000 ML 42 ML IV (07:17)
[2022-07-03] MEDS: CEFAZOLIN 2 GM/100 ML PREMIX 100 ML IV (07:45)
--- NOTE | 2022-07-03 07:45 | PM.PREOP ---
Pre-operative Note COVID-19 COVID-19 status: Negative Result date/Date tested (Pos, Neg/Pending): 07/02/22 Criteria for continued procedure: Expected advancement of disease process, Possibility delay results in more complex future surgery or treatment, Increased loss of function, Continuing or worsening of significant or severe pain, Deterioration of the patient's condition or overall health and Delay expected to result in less-positive ultimate med/surg outcome Interval Note History & Physical reviewed/Exam performed by Physician: Yes Changes to H&P: No
[2022-07-03 07:47] LABS: COVID19 -Nasal RAPID Negative (Negative)
--- NOTE | 2022-07-03 08:16 | SUR.OPER ---
Prone on spine table, head in foam head support, padded chest and pelvic supports, gel pad at knees, lower legs supported by pillows; nipples, genitalia and toes free of pressure, arms secured on foam padded arm boards at <90 degrees abduction. Tape over blanket at thigh secured to table.
[2022-07-03] MEDS: methylPREDNISolone acet DEPO 40 MG/ML VIAL IM (08:42)
[2022-07-03] MEDS: BUPIVACAINE 0.5% W/ EPI (PF) 30 ML VIAL INJ (08:42)
--- NOTE | 2022-07-03 08:45 | PM.OP.1 ---
Operative Date/Time/Diagnoses Date of procedure: 07/03/22 Time of procedure: 07:40 Pre-op diagnosis: 1. T11-12 disc herniation 2. Thoracic spinal stenosis Post-op diagnosis: same Procedure & Clinicians Procedure: 1. T11-12 left hemilaminectomy and microdiscectomy 2. Utilization of microsurgical technique and operating microscope Same procedure as scheduled: Yes Indications: Patient has been having chronic back pain and worsening thoracic radiculopathy. Patient failed multiple conservative management with worsening pain. Patient has been having difficulty performing activity of daily living. After discussing risks benefits of treatment options, patient elected proceed with surgery. Surgeon: Wednie Betts Research Support Specialist: Isa Oliva Click Yes if Unassisted: No Anesthesia Type: General Operative Notes Closure Type: primary Specimen(s): none sent Applied: catheter Estimated Blood Loss (mL): 5 Blood products transfused: none Procedure in detail: Patient was seen in the preoperative area. Risks and benefits of the surgery was discussed with the patient. Informed consent was obtained from the patient and placed in the chart. Surgical site was marked. Patient was taken to the operative room. General anesthesia was administered. Prophylactic antibiotic was given to the patient less than 30 min before the incision was made. Patient was placed into a prone position on the Satinder table. Patient's back was then prepped and draped in the sterile fashion. Time-out was performed at this time. Using AP and lateral C-arm imaging the interval between T11 T12 was identified and marked on patient's back. A 1 inch incision 1 in from midline was made on the left side. The fascia was incised in line with skin incision. Globus MARS retractors was placed inside the incision and docked onto the T11 lamina. Using microsurgical technique and operating microscope, a T11-12 laminotomy was performed using a Kerrison rongeur. Liagamentum flavum was resected at the site of the laminotomy. The disc space at T11-T12 was identified. Microdiscectomy was performed by incising the annulus with #11 blade. Microcurettes and pituitary was used to removed herniated disc fragments of disc from the epidural space. The spinal cord was visualized and protected during the entire procedure. After the microdiskectomy was completed, the area medial lateral superior and inferior to the area of the microdiskectomy was inspected and explored using a micro curette. No other impinging structure was identified. The wound was then irrigated with sterile normal saline. 40 mg Depo-Medrol was placed into the epidural space. The deep fascia was closed with 1-0 Vicryl. The subcutaneous tissue was closed with 2-0 Vicryl. The skin was closed with skin shelly. Patient tolerated the procedure well. There were no complications. Patient was transferred recovery room in stable condition. Complications: none Post-operative Condition: stable Disposition: PACU Plan for aftercare: Dsicharge to home
[2022-07-03] MEDS: HYDROMORPHONE 2 MG INJ IV (09:09)
[2022-07-03] MEDS: ACETAMINOPHEN 325 MG TABLET 975 MG PO (09:21)
--- NOTE | 2022-07-03 10:18 | SUR.PHASEII ---
Pt supplied with incentive spirometer, instructed in use. Pt demonstrates use of same satisfactorily.
--- NOTE | 2022-07-03 10:43 | SUR.PHASEII ---
Pt to car in wheelchair. Pt assisted by RN into car, states I just need to walk around. Rn requests he remain in car. Pt gets out of car and ambulates away through parking lot using cane. RN requests that Pt return to car, citing icy conditions. Pt refuses. RN asks Spouse of Pt to assist getting Pt back into the car, and spouse states We've been 42 years and I can't. Pt ambulating with steady gait using cane when RN returns to Pre-Op.
== END 2022-07-03 10:37 | disposition home or self-care (01) ==
LOC: AC 09:48 → OR 07-04 06:43
PROVIDERS: Family Provider Family Medicine; PCP Internal Medicine; Referring Provider Orthopaedic Surgery Orthopaedic Surgery of the Spine; Visit Provider Orthopaedic Surgery Orthopaedic Surgery of the Spine
PROC: (CPT 63003; principal; 2022-07-03 07:45)
DX: M51.24 Other intervertebral disc displacement, thoracic region (principal); M48.04 Spinal stenosis, thoracic region; Z20.822 Contact with and (suspected) exposure to COVID-19
CPT/HCPCS: 63003; 72070; 76000; 82962; 87635; C9803; J0690; J1030; J1100; J1170; J2250; J2405; J2704; J3010

== ENCOUNTER → 2022-11-22 12:49 | Outpatient (CLI) | payer OTHER, SELFPAY ==
[2018-03-03 14:47] VITALS: BMI 29.3
--- NOTE | 2022-11-22 | DI.MRI.S_ITS ---
PROCEDURE: MR LUMBAR SPINE WO CON INDICATIONS: Spinal stenosis, lumbar region with neurogenic claudication TECHNIQUE: Noncontrast sagittal T1 spin echo and T2 fast echo, coronal T2, sagittal STIR, and T2 fast spin echo through the lumbar spine. COMPARISON: [facility], CR, XR LUMBAR SPINE 2 OR 3 VIEWS, 08/05/2018, 13:14. [facility], CR, XR LUMBAR SPINE 2 OR 3 VIEWS, 11/06/2020, 17:05. [facility], , MR LUMBAR SPINE WO CON, 05/09/2022, 9:41. FINDINGS: Image quality: Degraded by metallic artifact. Alignment and Curvature: The same numbering system which was used on the prior report will be used on the current report, as denoted on the montage panel of the current examination. There is loss of normal lumbar lordosis. Mild leftward curvature of the lower lumbar spine. 3 mm of retrolisthesis of L5 on S1. Bone Marrow: Marrow is of normal overall signal. No acute vertebral body compression fractures. Posterior fusion hardware at L2-S1. Moderate reactive signal within the endplates adjacent to the L1-L2 intervertebral disc. Spinal Cord: Conus medullaris terminates at the mid L1 level. Visualized cord demonstrates normal signal and size. Paraspinous Soft Tissues: No paravertebral masses. T11-T12: Moderate disc height loss and desiccation. Mild diffuse disc bulge with superimposed left paracentral disc extrusion extending inferiorly within the left lateral recess. Mild facet and ligamentum flavum hypertrophy. Moderate to severe canal stenosis. Mild cord flattening. Moderate left and mild right foraminal stenosis. Probable compression of the left T12 nerve root within the lateral recess. No significant change. T12-L1: Normal appearance. L1-L2: Severe disc height loss and desiccation. Moderate diffuse disc bulge. Mild facet and ligamentum flavum hypertrophy. Mild epidural lipomatosis. Mild canal stenosis. Moderate bilateral foraminal stenosis. No significant change. L2-L3: Posterior fusion. Interbody device placement. Mild residual disc bulge/osteophyte. Mild facet and ligamentum flavum hypertrophy. Mild canal stenosis. Moderate right and mild left foraminal stenosis. No significant change. L3-L4: Posterior fusion and interbody device placement. No significant canal stenosis. Mild bilateral foraminal stenosis. No significant change. L4-L5: Posterior fusion and interbody device placement. Mild bilateral facet hypertrophy. Mild canal stenosis. Moderate bilateral foraminal stenosis. No significant change. L5-S1: Posterior fusion and interbody device placement. Mild residual disc bulge with superimposed right far lateral protrusion/osteophyte. Mild bilateral facet hypertrophy. Mild canal stenosis. Moderate to severe left and severe right foraminal stenosis. Right greater than left L5 nerve root compression. No significant change. IMPRESSION: 1. Multilevel degenerative disc and facet disease, as well as ligamentum flavum hypertrophy and epidural lipomatosis. 2. Multilevel canal stenoses, worst at T11-T12 where there is mild cord flattening. 3. Multilevel foraminal stenoses, worst at L5-S1 where there is associated intraforaminal nerve root compression. 4. Probable impingement upon the left T12 nerve root secondary to T11-T12 disc extrusion. 5. Recommend correlation with clinical symptoms to ascertain relevance of these findings. 6. Postsurgical sequelae. Dictated by: Bladimir Plasencia M.D. on 11/22/2022 at 13:38 Approved by: Bladimir Plasencia M.D. on 11/22/2022 at 13:48
== END ==
PROVIDERS: Family Provider Family Medicine; PCP Internal Medicine; Referring Provider Orthopaedic Surgery Orthopaedic Surgery of the Spine; Visit Provider Orthopaedic Surgery Orthopaedic Surgery of the Spine
DX: M48.062 Spinal stenosis, lumbar region with neurogenic claudication (principal); M48.07 Spinal stenosis, lumbosacral region; M51.36 Other intervertebral disc degeneration, lumbar region; M51.37 Other intervertebral disc degeneration, lumbosacral region; M47.816 Spondylosis without myelopathy or radiculopathy, lumbar region; M47.817 Spondylosis without myelopathy or radiculopathy, lumbosacral region; M48.04 Spinal stenosis, thoracic region; M51.24 Other intervertebral disc displacement, thoracic region; Z98.1 Arthrodesis status
CPT/HCPCS: 72148

== ENCOUNTER 2023-09-23 08:27 | Day surgery (SDC) | payer OTHER, SELFPAY ==
[2018-03-03 14:47] VITALS: BMI 29.3
--- NOTE | 2023-09-23 | PATH_ITS ---
[facility] Accession Number: [id number] No. of containers..01 Tissue . 01 Material submitted: . colon - TRANSVERSE POLYPS . 01 Diagnosis: TRANSVERSE COLON, POLYPS: Tubular adenoma in 2 of 3 fragments. Serrated lesion, favor sessile serrated adenoma, 1 fragment. [facility] 09/30/2023 1411 Local . 01 Electronically signed: . Neyda Lockhart MD, Pathologist NPI- [id number] . 01 Gross description: . TRANSVERSE POLYPS: Received in formalin are 3 fragment(s) of chan, soft tissue measuring 0.3 x 0.3 x 0.2 cm to 0.8 x 0.6 x 0.2 cm submitted entirely in 1 cassette(s) /ARSENIO 09/25/20236 Local . 01 Pathologist provided ICD-10: D12.3 . 01 CPT . 762868 Specimen Comment: A courtesy copy of this report has been sent to [phone] Performed at: 01 [facility] [address] [place] [address], [place], [place] [id number] MD Reza Grewal MD Phone: [phone]
[2023-09-23 09:07] VITALS: BP 131/82; PULSE 76; RESP 18; TEMP 36.8; O2SAT 94
[2023-09-23] MEDS: LACTATED RINGERS 1,000 ML 42 ML IV (09:14)
--- NOTE | 2023-09-23 09:49 | P.HP_ITS ---
History of Present Illness History of Present Illness Date Patient Seen: 09/23/23 Time Patient Seen: 09:49 Chief complaint: Colonoscopy Narrative: 68-year-old man history of colonic polyps here for screening colonoscopy. Last colonoscopy 6 years ago. No abdominal concerns today. No family history of intestinal malignancy. [facility] Medical History Eczema Hyperactive Cataracts, both eyes Anxiety Easy bruisability Pre-diabetes Enlarged prostate Diverticulosis Hemorrhoids Ulcer GERD (gastroesophageal reflux disease) Dislocation of right shoulder joint Arthritis Ganglion cyst Fingers fractured Edema Hyperlipidemia HTN (hypertension) Bronchitis Numbness RLS (restless legs syndrome) Numbness and tingling of both legs Migraines Surgical History History of incision and drainage (~2019) Hx of foot surgery History of lumbar fusion (2018) Hx of tonsillectomy H/O vasectomy History of colonoscopy History of arthroscopy of both knees History of bilateral carpal tunnel release History of surgery on arm Social History household members: spouse Smoking Status: Former smoker alcohol intake: current Meds Home Medications and Allergies Home Medications Medication Instructions Recorded Confirmed Type amlodipine 10 mg tablet 10 mg PO DAILY 02/17/18 09/23/23 History clonazepam 0.5 mg tablet 0.5 mg PO BID 02/17/18 09/23/23 History gabapentin 300 mg capsule 600 mg PO BID 02/17/18 09/23/23 History lisinopril 20 1 tab PO DAILY 02/17/18 09/23/23 History mg-hydrochlorothiazide 25 mg tablet meloxicam 15 mg tablet 15 mg PO QAM PRN Pain 02/17/18 09/23/23 History pravastatin 10 mg tablet 80 mg PO QPM 02/17/18 09/23/23 History tamsulosin 0.4 mg capsule 0.4 mg PO QPM 02/17/18 09/23/23 History docusate sodium 100 mg capsule 100 mg PO BID PRN constipation #30 03/06/18 09/23/23 Rx caps finasteride 5 mg tablet 5 mg PO DAILY 06/26/22 09/23/23 History oxycodone 5 mg tablet 5 mg PO Q4H PRN pain #30 tabs 07/03/22 09/23/23 Rx Allergies Allergy/AdvReac Type Severity Reaction Status Date / Time atenolol AdvReac Severe Tachycardia Verified 09/23/23 09:01 fentanyl AdvReac Severe Feels Verified 09/23/23 09:01 like I drank a whole pot of coffee Exam Vital Signs (past 8 hours): - 09/23/23 09:07 Temperature 98.3 F Pulse Rate 76 Respiratory Rate 18 Blood Pressure 131/82 Pulse Oximetry 94 Oxygen Delivery Method Room Air Oxygen Flow Rate 0 Oxygen Delivery Method Room Air Oxygen Flow Rate 0 Narrative Exam Narrative: General adult man alert oriented no acute distress Chest nonlabored respiration Extremities warm well perfused Assessment & Plan Assessment & Plan narrative: The patient requires colorectal screening and colonoscopy is recommended. Technical details were discussed. Risks, benefits, alternatives explained. Risks including but not limited to myocardial infarction, aspiration, bleeding, pain, missed lesion, incomplete examination, need for further radiographic studies, intestinal injury, and need for major abdominal surgery were discussed. All questions were answered to their satisfaction, and they are in agreement with this plan.
[2023-09-23 10:19] VITALS: BP 126/68; PULSE 77; RESP 12; TEMP 36.4; O2SAT 94
--- NOTE | 2023-09-23 10:23 | P.OP.COLON_ITS ---
Operative Date/Time/Diagnoses Date of procedure: 09/23/23 Time of procedure: 10:23 Pre-op diagnosis: Personal history of colonic polyps Post-op diagnosis: other (Colonic polyps x2) Procedure & Clinicians Study performed: Colonoscopy and polypectomy Same procedure as scheduled: Yes Indications: Colorectal screening Personal history of colonic polyps. Surgeon: Matthew Floyd Procedure Notes Procedure in detail: The history and physical was performed/updated and the patient is ASA class is 2. The procedure was discussed in detail with the patient. Potential risks complications including infection, bleeding, missed diagnosis, perforation, need for surgery, and were explained. Their questions were answered and informed consent was obtained. Patient was brought to the procedure room and placed standard monitoring equipment. The patient's vital signs were monitored continuously throughout the entire procedure. Prior to starting time-out was performed. The patient was placed in the left lateral recumbent position. Procedural sedation was administered by anesthesia. Examination began with a thorough inspection of the perianal area there was no evidence of fissures, fistulae, external hemorrhoids or cutaneous malignancy. The colonoscopy scope was then placed into the anal canal and was advanced to the cecum, which was identified by the ileocecal valve, the appendiceal orifice and the confluence of the taenia. The scope was then slowly withdrawn examining colon thoroughly in all directions, irrigating it of any residual stool. The scope was retroflexed within the rectum The patient tolerated the procedure well. They will be discharged once criteria are met. The prep was of fair quality. The withdrawl time was 7 minutes. FINDINGS * Transverse colon. 5-8 mm polyp removed with cold snare. 3 mm polyp removed with biopsy forceps * Kaur diverticulosis * Internal hemorrhoids Specimen(s): other (Transverse colon polyps x2) Impression: Colonic polyps x2 Post-procedure Recommendations: High fiber diet Plan for aftercare: Follow-up is dependent on pathology findings likely 5 years. Disposition: same day surgery
[2023-09-23 10:24] VITALS: BP 112/63; PULSE 77; RESP 13; O2SAT 97
[2023-09-23 10:29] VITALS: BP 98/68; PULSE 83; RESP 13; TEMP 36.4; O2SAT 95
[2023-09-23 10:45] VITALS: BP 137/80; PULSE 68; RESP 16; TEMP 36.5; O2SAT 97
== END 2023-09-23 10:59 | disposition home or self-care (01) ==
PROVIDERS: Family Provider Family Medicine; PCP Internal Medicine; Referring Provider Surgery; Visit Provider Surgery
PROC: 0DJD8ZZ Inspection of Lower Intestinal Tract, Via Natural or Artificial Opening Endoscopic (ICD-10-PCS; CPT 45378; principal; 2023-09-23 09:45)
DX: Z12.11 Encounter for screening for malignant neoplasm of colon (principal); Z86.010 Personal history of colon polyps; K64.8 Other hemorrhoids; K57.30 Diverticulosis of large intestine without perforation or abscess without bleeding; D12.3 Benign neoplasm of transverse colon
CPT/HCPCS: 45385; 45380; J2704

== ENCOUNTER → 2024-05-11 12:09 | Outpatient (CLI) | payer OTHER, SELFPAY ==
[2018-03-03 14:47] VITALS: BMI 29.3
--- NOTE | 2024-05-11 12:16 | DI.MRI.S_ITS ---
PROCEDURE: MR LUMBAR SPINE WO CON INDICATIONS: degeneration of intervertebral disc of lumbar TECHNIQUE: Noncontrast sagittal T1 spin echo and T2 fast echo, sagittal STIR, and T2 fast spin echo through the lumbar spine. In cases with scoliosis, additional coronal T2 fast spin echo may be performed. COMPARISON: [facility], MR, MR LUMBAR SPINE WO CON, 05/09/2022, 9:41. [facility], CT, CT LUMBAR SPINE WO CON, 02/27/2022, 12:39. [facility], MR, MR LUMBAR SPINE WITH/WITHOUT CONTRAST, 11/27/2020, 13:00. [facility], CR, XR LUMBAR SPINE 2 OR 3 VIEWS, 12/09/2018, 11:08. [facility], MR, L-SPINE WITHOUT CONTRAST, 01/17/2015, 15:39. [facility], MR, MR LUMBAR SPINE WO CON, 11/22/2022, 12:57. FINDINGS: Image quality: There is artifact associated with the metallic hardware. This examination is limited by involuntary motion artifact. Alignment and Curvature: There is normal bony alignment. Bone Marrow: Marrow is of normal overall signal. No acute vertebral body compression fractures. Spinal Cord: Conus medullaris terminates at the L1 level. Visualized cord demonstrates normal signal and size. Paraspinous Soft Tissues: No paravertebral masses. Postoperative changes are seen, with bilateral pedicle screws L2 through S1. Vertical fixation rods are present. Disc spacers are seen at L2-L3, L3-L4, L4-L5, and L5-S1. T12-L1: Normal appearance. L1-L2: Moderate to severe loss of disc height and disc signal can be seen. Endplate irregularity and sclerosis can be seen. Moderate disc bulge is seen, which is eccentric to the right. There is a right foraminal disc osteophyte protrusion, as on series 5, image 13. Mild facet joint hypertrophy is seen. There is at least moderate bilateral neural foraminal narrowing seen, right worse than left. There is a degree of compression seen upon the exiting right L1 nerve root. Moderate central canal narrowing is seen. When comparison is made with the prior images, these findings are similar. L2-L3: Moderate disc bulge is seen, which is eccentric to the right. Mild facet joint hypertrophy is seen. Mild bilateral neural foraminal narrowing is seen. Mild central canal narrowing is seen. When comparison is made with the prior images, these findings are similar. L3-L4: Mild to moderate disc bulge is seen. Mild to moderate facet hypertrophy can be seen. There is mild bilateral neural foraminal narrowing. Mild central canal narrowing is seen. When comparison is made with the prior images, these findings are similar. L4-L5: Moderate generalized disc bulge is seen. Mild facet joint hypertrophy is seen. Moderate bilateral neural foraminal narrowing is seen. Minimal canal narrowing is seen. No significant change from the prior. L5-S1: At least moderate disc bulge is seen, which is eccentric to the right. There is a central disc osteophyte protrusion. Mild to moderate facet hypertrophy is seen. There is moderate to severe bilateral neural foraminal narrowing seen, with an associated degree of compression seen upon the exiting nerve roots. Minimal central canal narrowing is seen. No significant change from the prior. IMPRESSION: Extensive postoperative and degenerative changes are seen, which are similar to the prior MRI. Dictated by: Luís Raines M.D. on 05/18/2024 at 16:59 Approved by: Luís Raines M.D. on 05/18/2024 at 17:05
== END ==
PROVIDERS: Family Provider Family Medicine; PCP Internal Medicine; Referring Provider Internal Medicine; Visit Provider Internal Medicine
DX: M51.16 Intervertebral disc disorders with radiculopathy, lumbar region; M51.17 Intervertebral disc disorders with radiculopathy, lumbosacral region; M47.26 Other spondylosis with radiculopathy, lumbar region; M47.27 Other spondylosis with radiculopathy, lumbosacral region; M48.061 Spinal stenosis, lumbar region without neurogenic claudication; M48.07 Spinal stenosis, lumbosacral region; Z98.1 Arthrodesis status
CPT/HCPCS: 72148

== ENCOUNTER → 2024-12-15 12:50 | Outpatient (CLI) | payer OTHER, SELFPAY ==
[2018-03-03 14:47] VITALS: BMI 29.3
[2024-12-15 14:25] LABS: Add Manual Diff / Slide Review NO; Hematocrit 42.2 % (41-53); Hemoglobin 16.0 g/dL (13.5-17.5); Lymphocytes Absolute Auto 1700 /uL (1100-4500); Mean Corpuscular Hemoglobin 37.2 PG (26-34); Mean Corpuscular Volume 97.9 fL (80-100); Platelet Count 170 X10^3/uL (150-400)
[2024-12-15 14:33] LABS: Hemoglobin A1C% w Est Avg Glu 6.0 % (4.0-6.0)
[2024-12-15 15:04] LABS: Alanine Aminotransferase 27 IU/L (<50); Albumin 4.6 g/dL (3.5-5.0); Albumin Globulin Ratio 1.8 (1.0-2.8); Alkaline Phosphatase 84 U/L (38-126); Blood Urea Nitrogen 20 mg/dL (9-20); Calcium 9.4 mg/dL (8.4-10.2); Carbon Dioxide 27 mmol/L (22-32); Chloride 98 mmol/L (98-107); Cholesterol 121 mg/dL (140-199); Estimated Glomerular Filt Rate > 60 mL/min (>60); Globulin 2.6 g/dL (1.7-4.1); Glucose 125 mg/dL (70-99); HDL Cholesterol 46 mg/dL (40-60); HEMOLYSIS < 15 (0-50); Potassium 3.6 mmol/L (3.4-5.1); Sodium 136 mmol/L (137-145); Total Protein 7.2 g/dL (6.3-8.2); Triglycerides 113 mg/dL (35-150)
[2024-12-15 15:52] LABS: Polychromasia 2+; Tear Drop Cells 1+
[2024-12-15 15:53] LABS: Mean Corpuscular HGB Conc 34.1 % (30-36)
== END ==
PROVIDERS: Family Provider Family Medicine; PCP Family Medicine; Referring Provider Family Medicine; Visit Provider Family Medicine
DX: R89.8 Other abnormal findings in specimens from other organs, systems and tissues (principal); R73.03 Prediabetes; Z12.5 Encounter for screening for malignant neoplasm of prostate
CPT/HCPCS: 36415; 80053; 80061; 82043; 82570; 83036; 85025; G0103

== ENCOUNTER → 2025-01-20 15:27 | Outpatient (CLI) | payer OTHER, SELFPAY ==
[2018-03-03 14:47] VITALS: BMI 29.3
--- NOTE | 2025-01-20 15:28 | DI.MRI.S_ITS ---
PROCEDURE: MR ELBOW LT W CON INDICATIONS: LT ELBOW PAIN TECHNIQUE: Noncontrast coronal proton density fast spin echo and T2 fast spin echo with fat saturation, axial and sagittal T1 spin echo and T2 fast spin echo with fat saturation through the elbow. COMPARISON: None. FINDINGS: Image quality: Excellent. Lateral structures: The lateral ulnar collateral ligament and radial collateral ligament both appear intact. The overlying common extensor tendon also appears normal. Medial structures: The ulnar collateral ligament appears intact. Partial tear of common extensor tendon at the origin. ulnar nerve appears normal in size and signal within the cubital tunnel. Anterior structures: The biceps and brachialis tendons both appear intact as they insert onto the proximal radius and ulna, respectively. No bicipitoradial bursal fluid. The median and radial neurovascular bundles appear normal; no focal muscle atrophy to suggest nerve impingement. Posterior structures: The conjoint triceps tendon from the long and lateral heads appears intact. The medial head of the triceps tendon also appears normal, with direct muscle insertion onto the olecranon. Extensive soft tissue edema in the subcutaneous space along the dorsal elbow surrounding a fluid collection with thick hypointense rim in the expected location of the olecranon bursa. Bone and cartilage: No bone marrow contusions or fractures. No osteochondral injuries. IMPRESSION: Olecranon bursitis, possibly hemorrhagic or infected. Partial tear of medial collateral ligament. Dictated by: Scotty Bowers M.D. on 01/20/2025 at 17:33 Approved by: Scotty Bowers M.D. on 01/20/2025 at 17:36
== END ==
PROVIDERS: Family Provider Family Medicine; PCP Family Medicine; Referring Provider Family Medicine; Visit Provider Family Medicine
DX: S53.492A Other sprain of left elbow, initial encounter (principal); S59.902A Unspecified injury of left elbow, initial encounter; M70.22 Olecranon bursitis, left elbow; X58.XXXA Exposure to other specified factors, initial encounter
CPT/HCPCS: 73221

== ENCOUNTER → 2025-03-18 12:16 | Outpatient (CLI) | payer OTHER, SELFPAY ==
[2018-03-03 14:47] VITALS: BMI 29.3
--- NOTE | 2025-03-18 | DI.CT.S_ITS ---
PROCEDURE: CT LUMBAR SPINE WO CON
--- NOTE | 2025-03-18 12:18 | DI.CT.S_ITS ---
PROCEDURE: CT PEL WO CON
== END ==
LOC: CT 12:17
PROVIDERS: Family Provider Family Medicine; PCP Family Medicine; Referring Provider Orthopaedic Surgery Orthopaedic Surgery of the Spine; Visit Provider Orthopaedic Surgery Orthopaedic Surgery of the Spine
DX: M47.818 Spondylosis without myelopathy or radiculopathy, sacral and sacrococcygeal region (principal); M53.3 Sacrococcygeal disorders, not elsewhere classified; M47.816 Spondylosis without myelopathy or radiculopathy, lumbar region; M47.817 Spondylosis without myelopathy or radiculopathy, lumbosacral region; M48.061 Spinal stenosis, lumbar region without neurogenic claudication; M48.07 Spinal stenosis, lumbosacral region; K57.30 Diverticulosis of large intestine without perforation or abscess without bleeding; Z98.1 Arthrodesis status
CPT/HCPCS: 72131; 72192